=== PATIENT | male | born 1945 | race Caucasian/White ===

== ENCOUNTER 2018-07-26 11:27 | Outpatient (RCR) | payer SELFPAY | END 2018-07-27 23:59 | disposition home or self-care (01) | LOC: CR 11:27 | PROVIDERS: PCP Nurse Practitioner; Visit Provider Family Medicine | DX: Z95.5 Presence of coronary angioplasty implant and graft (principal); Z51.89 Encounter for other specified aftercare ==

== ENCOUNTER 2018-08-16 09:42 | Outpatient (CLI) | payer MEDICARE, SELFPAY ==
[2018-08-16 10:36] LABS: HCT 36.1 % (40.0-50.0); HGB 11.9 g/dL (13.5-17.5); Mean Corpuscular Hemoglobin 31.2 pg (27.0-33.0); Mean Corpuscular Volume 94.5 fL (80-95); Mean Platelet Volume 13.5 fL (8.0-11.0); Platelet Count 129 x1000/uL (130-400); RBC 3.82 m/cumm (4.50-6.00); White Blood Cell Count 6.77 k/cumm (4.4-10.8)
[2018-08-16 11:35] LABS: ALT 60 U/L (12-78); AST 30 U/L (15-37); Albumin 3.6 g/dL (3.4-5.0); Alkaline Phosphatase 90 U/L (46-116); Anion Gap 8.4 mmol/L (3-11); BUN 33 mg/dL (7-18); Bilirubin, Total 0.9 mg/dL (0.2-1.0); CO2 28.6 mmol/L (21.0-32.0); CREATININE 1.69 mg/dL (0.70-1.30); Calcium 9.1 mg/dL (8.5-10.1); Chloride 105 mmol/L (98-107); Estimated GFR 39.76 (mL/min/1.73m2); Glucose 176 mg/dL (70-100); Potassium 4.2 mmol/L (3.5-5.1); Sodium 142 mmol/L (136-145); Total Protein 6.9 g/dL (6.4-8.2)
[2018-08-16 11:42] LABS: COMMENT (LAB VIEW ONLY) 123.89 mg/dL; Microalb ug/mg Crea 20.7 ug/mg Cr
[2018-08-16 12:59] LABS: Hemoglobin A1C 8.3 % (4.5-6.2)
== END 2018-08-16 10:02 ==
PROVIDERS: PCP Nurse Practitioner; Visit Provider Nurse Practitioner
DX: E11.22 Type 2 diabetes mellitus with diabetic chronic kidney disease (principal); N18.3 Chronic kidney disease, stage 3 (moderate); E78.5 Hyperlipidemia, unspecified; I10 Essential (primary) hypertension
CPT/HCPCS: 36415; 80053; 85027; 82043; 82570; 83036

== ENCOUNTER 2018-08-23 10:00 | Outpatient (RCR) | payer SELFPAY | END 2018-08-26 23:59 | disposition home or self-care (01) | LOC: CR 10:00 | PROVIDERS: PCP Nurse Practitioner; Visit Provider Family Medicine | DX: Z51.89 Encounter for other specified aftercare (principal) ==

== ENCOUNTER → 2018-09-06 12:49 | Outpatient (BNVA) | payer MEDICARE, SELFPAY | PROVIDERS: PCP Nurse Practitioner; Visit Provider Nurse Practitioner Gerontology | DX: R35.0 Frequency of micturition (principal); E11.40 Type 2 diabetes mellitus with diabetic neuropathy, unspecified; Z79.4 Long term (current) use of insulin; I12.9 Hypertensive chronic kidney disease with stage 1 through stage 4 chronic kidney disease, or unspecified chronic kidney disease; E11.22 Type 2 diabetes mellitus with diabetic chronic kidney disease; N18.9 Chronic kidney disease, unspecified | CPT/HCPCS: 99204; 99215 ==

== ENCOUNTER 2018-09-25 10:00 | Outpatient (RCR) | payer SELFPAY | END 2018-09-26 23:59 | disposition home or self-care (01) | LOC: CR 10:00 | PROVIDERS: PCP Nurse Practitioner; Visit Provider Family Medicine | DX: Z51.89 Encounter for other specified aftercare (principal) ==

== ENCOUNTER → 2018-09-26 09:09 | Outpatient (BNVA) | payer MEDICARE, SELFPAY | PROVIDERS: PCP Nurse Practitioner; Visit Provider Psychiatry & Neurology Neurology | DX: M79.671 Pain in right foot (principal); M79.672 Pain in left foot; E11.40 Type 2 diabetes mellitus with diabetic neuropathy, unspecified; E11.22 Type 2 diabetes mellitus with diabetic chronic kidney disease; N18.3 Chronic kidney disease, stage 3 (moderate); I12.9 Hypertensive chronic kidney disease with stage 1 through stage 4 chronic kidney disease, or unspecified chronic kidney disease; Z79.4 Long term (current) use of insulin | CPT/HCPCS: 99205; 99215 ==

== ENCOUNTER 2018-09-27 05:24 | Outpatient (RCR) | payer SELFPAY | END 2018-10-26 23:59 | disposition home or self-care (01) | LOC: CR 05:24 | PROVIDERS: PCP Nurse Practitioner; Visit Provider Family Medicine | DX: Z51.89 Encounter for other specified aftercare (principal) ==

== ENCOUNTER 2018-09-28 11:40 | Outpatient (CLI) | payer MEDICARE, SELFPAY ==
[2018-09-28 13:38] LABS: Anion Gap 10.5 mmol/L (3-11); BUN 36 mg/dL (7-18); CO2 28.5 mmol/L (21.0-32.0); CREATININE 1.87 mg/dL (0.70-1.30); Calcium 8.9 mg/dL (8.5-10.1); Chloride 104 mmol/L (98-107); Estimated GFR 35.38 (mL/min/1.73m2); Glucose 185 mg/dL (70-100); Potassium 4.8 mmol/L (3.5-5.1); Sodium 143 mmol/L (136-145)
[2018-09-28 14:01] LABS: TSH (W/Ref FT4) 1.45 uIU/mL (0.358-3.74); Vitamin B12 299 pg/mL (193-986)
[2018-10-01 12:18] LABS: Total Protein 6.6 g/dl (6.3-8.2)
== END 2018-09-28 12:00 ==
PROVIDERS: PCP Nurse Practitioner; Visit Provider Psychiatry & Neurology Neurology
DX: E11.40 Type 2 diabetes mellitus with diabetic neuropathy, unspecified (principal); E11.21 Type 2 diabetes mellitus with diabetic nephropathy
CPT/HCPCS: 80048; 82607; 84165; 84443

== ENCOUNTER 2018-11-07 17:12 | Outpatient (CLI) | payer MEDICARE, SELFPAY ==
--- NOTE | 2018-11-07 15:42 | DI.RAD_ITS ---
SYMPTOM/DIAGNOSIS: RIGHT FOOT PAIN X 2 MONTHS, M79.671, FOOT PAIN RT RIGHT FOOT: Three views. No priors. There is a nondisplaced fracture involving the proximal right 5th metatarsal. The fractures does not appear to extend in to the joint space. No other fracture or dislocation is seen. Degenerative changes are seen in the foot. Vascular calcifications are present. There is mild soft tissue swelling laterally IMPRESSION: Nondisplaced fracture involving the right 5th metatarsal.
== END 2018-11-07 17:32 ==
PROVIDERS: PCP Nurse Practitioner; Visit Provider Nurse Practitioner
DX: M79.671 Pain in right foot (principal); S92.354A Nondisplaced fracture of fifth metatarsal bone, right foot, initial encounter for closed fracture
CPT/HCPCS: 73630

== ENCOUNTER 2018-11-15 10:00 | Outpatient (RCR) | payer SELFPAY | END 2018-11-26 23:59 | disposition home or self-care (01) | LOC: CR 10:00 | PROVIDERS: PCP Nurse Practitioner; Visit Provider Family Medicine | DX: Z51.89 Encounter for other specified aftercare (principal) ==

== ENCOUNTER 2018-12-27 10:00 | Outpatient (RCR) | payer SELFPAY | END 2018-12-27 23:59 | disposition home or self-care (01) | LOC: CR 10:00 | PROVIDERS: PCP Nurse Practitioner; Visit Provider Family Medicine | DX: Z51.89 Encounter for other specified aftercare (principal) ==

== ENCOUNTER → 2019-01-16 08:40 | Outpatient (BNVA) | payer MEDICARE, SELFPAY | PROVIDERS: PCP Nurse Practitioner; Visit Provider Nurse Practitioner Adult Health | DX: E11.42 Type 2 diabetes mellitus with diabetic polyneuropathy (principal); Z79.4 Long term (current) use of insulin; E11.22 Type 2 diabetes mellitus with diabetic chronic kidney disease; N18.3 Chronic kidney disease, stage 3 (moderate); I12.9 Hypertensive chronic kidney disease with stage 1 through stage 4 chronic kidney disease, or unspecified chronic kidney disease | CPT/HCPCS: 99213 ==

== ENCOUNTER 2019-01-24 12:52 | Outpatient (RCR) | payer SELFPAY | END 2019-01-24 23:59 | disposition home or self-care (01) | LOC: CR 12:52 | PROVIDERS: PCP Nurse Practitioner; Visit Provider Family Medicine | DX: Z51.89 Encounter for other specified aftercare (principal) ==

== ENCOUNTER 2019-02-21 10:00 | Outpatient (RCR) | payer SELFPAY | END 2019-02-24 23:59 | disposition home or self-care (01) | LOC: CR 10:00 | PROVIDERS: PCP Nurse Practitioner; Visit Provider Family Medicine | DX: Z51.89 Encounter for other specified aftercare (principal) ==

== ENCOUNTER 2019-03-21 10:00 | Outpatient (RCR) | payer SELFPAY | END 2019-03-26 23:59 | disposition home or self-care (01) | LOC: CR 10:00 | PROVIDERS: PCP Nurse Practitioner; Visit Provider Family Medicine | DX: Z51.89 Encounter for other specified aftercare (principal) ==

== ENCOUNTER 2019-03-27 05:32 | Outpatient (RCR) | payer SELFPAY | END 2019-04-26 23:59 | disposition home or self-care (01) | LOC: CR 05:32 | PROVIDERS: PCP Nurse Practitioner; Visit Provider Family Medicine | DX: Z51.89 Encounter for other specified aftercare (principal) ==

== ENCOUNTER 2019-04-28 04:24 | Outpatient (RCR) | payer SELFPAY | END 2019-05-26 23:59 | disposition home or self-care (01) | LOC: CR 04:24 | PROVIDERS: PCP Nurse Practitioner; Visit Provider Family Medicine | DX: Z51.89 Encounter for other specified aftercare (principal) ==

== ENCOUNTER 2019-06-18 14:03 | Outpatient (RCR) | payer SELFPAY | END 2019-06-26 23:59 | disposition home or self-care (01) | LOC: CR 14:03 | PROVIDERS: PCP Nurse Practitioner; Visit Provider Family Medicine | DX: Z51.89 Encounter for other specified aftercare (principal) ==

== ENCOUNTER → 2019-07-17 09:05 | Outpatient (BNVA) | payer MEDICARE, SELFPAY | PROVIDERS: PCP Nurse Practitioner; Visit Provider Nurse Practitioner Adult Health | DX: E11.42 Type 2 diabetes mellitus with diabetic polyneuropathy (principal); R25.1 Tremor, unspecified; R41.3 Other amnesia; I12.9 Hypertensive chronic kidney disease with stage 1 through stage 4 chronic kidney disease, or unspecified chronic kidney disease; E11.22 Type 2 diabetes mellitus with diabetic chronic kidney disease; N18.3 Chronic kidney disease, stage 3 (moderate); Z79.4 Long term (current) use of insulin | CPT/HCPCS: 99213 ==

== ENCOUNTER 2019-07-25 09:00 | Outpatient (RCR) | payer SELFPAY | END 2019-07-27 23:59 | disposition home or self-care (01) | LOC: CR 09:00 | PROVIDERS: PCP Nurse Practitioner; Visit Provider Family Medicine | DX: Z51.89 Encounter for other specified aftercare (principal) ==

== ENCOUNTER 2019-07-26 02:40 | Outpatient (CLI) | payer MEDICARE, SELFPAY ==
[2019-07-26 07:33] LABS: HCT 38.3 % (40.0-50.0); HGB 12.4 g/dL (13.5-17.5); Mean Corp. HGB Concentration 32.4 g/dL (32.0-36.0); Mean Corpuscular Hemoglobin 31.1 pg (27.0-33.0); Mean Platelet Volume 13.5 fL (8.0-11.0); Platelet Count 125 x1000/uL (130-400); RBC 3.99 m/cumm (4.50-6.00); RBC Distribution Width 14.3 % (11.8-14.1); White Blood Cell Count 8.95 k/cumm (4.4-10.8)
[2019-07-26 08:16] LABS: Microalb ug/mg Crea 12.9 ug/mg Cr
[2019-07-26 08:38] LABS: ALT 44 U/L (16-63); AST 24 U/L (15-37); Albumin 3.8 g/dL (3.4-5.0); Alkaline Phosphatase 92 U/L (46-116); Anion Gap 9.7 mmol/L (3-11); BUN 44 mg/dL (7-18); Bilirubin, Total 0.9 mg/dL (0.2-1.0); CO2 27.3 mmol/L (21.0-32.0); CREATININE 1.87 mg/dL (0.70-1.30); Calculated LDL 48 mg/dL; Chloride 108 mmol/L (98-107); Cholesterol 110 mg/dL (50-200); Estimated GFR 35.28 (mL/min/1.73m2); Glucose 88 mg/dL (70-100); HDL Cholesterol 35 mg/dL (40-60); Potassium 4.2 mmol/L (3.5-5.1); Sodium 145 mmol/L (136-145); Total Protein 7.3 g/dL (6.4-8.2); Triglyceride 135 mg/dL (30-150); Vitamin B12 1487 pg/mL (193-986)
== END 2019-07-26 03:00 ==
PROVIDERS: PCP Nurse Practitioner; Visit Provider Nurse Practitioner Adult Health
DX: E11.21 Type 2 diabetes mellitus with diabetic nephropathy (principal); E78.5 Hyperlipidemia, unspecified; I10 Essential (primary) hypertension; E53.8 Deficiency of other specified B group vitamins
CPT/HCPCS: 36415; 80053; 80061; 85027; 82043; 82570; 82607

== ENCOUNTER 2019-08-20 13:23 | Outpatient (RCR) | payer SELFPAY | END 2019-08-26 23:59 | disposition home or self-care (01) | LOC: CR 13:23 | PROVIDERS: PCP Nurse Practitioner; Visit Provider Family Medicine | DX: Z51.89 Encounter for other specified aftercare (principal) ==

== ENCOUNTER → 2019-09-04 08:24 | Outpatient (BNVA) | payer MEDICARE, SELFPAY | PROVIDERS: PCP Nurse Practitioner; Referring Provider Nurse Practitioner; Visit Provider Nurse Practitioner Adult Health | DX: M79.671 Pain in right foot (principal); E11.42 Type 2 diabetes mellitus with diabetic polyneuropathy; Z79.4 Long term (current) use of insulin; M79.672 Pain in left foot | CPT/HCPCS: 99213 ==

== ENCOUNTER 2019-09-26 12:00 | Outpatient (RCR) | payer SELFPAY | END 2019-09-26 23:59 | disposition home or self-care (01) | LOC: CR 12:00 | PROVIDERS: PCP Nurse Practitioner; Visit Provider Family Medicine | DX: Z51.89 Encounter for other specified aftercare (principal) ==

== ENCOUNTER 2019-10-17 11:23 | Outpatient (RCR) | payer SELFPAY | END 2019-10-26 23:59 | disposition home or self-care (01) | LOC: CR 11:23 | PROVIDERS: PCP Nurse Practitioner; Visit Provider Family Medicine | DX: Z51.89 Encounter for other specified aftercare (principal) ==

== ENCOUNTER 2019-11-12 12:21 | Outpatient (RCR) | payer SELFPAY | END 2019-11-26 23:59 | disposition home or self-care (01) | LOC: CR 12:21 | PROVIDERS: PCP Nurse Practitioner; Visit Provider Family Medicine | DX: Z51.89 Encounter for other specified aftercare (principal) ==

== ENCOUNTER 2019-12-26 09:00 | Outpatient (RCR) | payer SELFPAY | END 2019-12-27 23:59 | disposition home or self-care (01) | LOC: CR 09:00 | PROVIDERS: PCP Nurse Practitioner; Visit Provider Family Medicine | DX: Z51.89 Encounter for other specified aftercare (principal) ==

== ENCOUNTER 2020-01-02 09:00 | Outpatient (RCR) | payer SELFPAY | END 2020-01-25 23:59 | disposition home or self-care (01) | LOC: CR 09:00 | PROVIDERS: PCP Nurse Practitioner; Visit Provider Family Medicine | DX: Z51.89 Encounter for other specified aftercare (principal) ==

== ENCOUNTER 2020-01-26 03:37 | Outpatient (RCR) | payer SELFPAY | END 2020-02-25 23:59 | disposition home or self-care (01) | LOC: CR 03:37 | PROVIDERS: PCP Nurse Practitioner; Visit Provider Family Medicine | DX: Z51.89 Encounter for other specified aftercare (principal) ==

== ENCOUNTER → 2020-04-22 09:46 | Outpatient (BNVA) | payer MEDICARE, SELFPAY | PROVIDERS: PCP Nurse Practitioner; Referring Provider Nurse Practitioner; Visit Provider Nurse Practitioner Adult Health | DX: E11.42 Type 2 diabetes mellitus with diabetic polyneuropathy (principal); E11.22 Type 2 diabetes mellitus with diabetic chronic kidney disease; I12.9 Hypertensive chronic kidney disease with stage 1 through stage 4 chronic kidney disease, or unspecified chronic kidney disease; Z79.4 Long term (current) use of insulin | CPT/HCPCS: 99213 ==

== ENCOUNTER 2020-05-21 02:51 | Outpatient (CLI) | payer MEDICARE, SELFPAY ==
[2020-05-21 09:03] LABS: HCT 38.7 % (40.0-50.0); HGB 12.5 g/dL (13.5-17.5); Mean Corp. HGB Concentration 32.3 g/dL (32.0-36.0); Mean Corpuscular Hemoglobin 30.5 pg (27.0-33.0); Mean Corpuscular Volume 94.4 fL (80-95); RBC Distribution Width 14.1 % (11.8-14.1); White Blood Cell Count 7.58 k/cumm (4.4-10.8)
[2020-05-21 09:09] LABS: Platelet Count 125 x1000/uL (130-400)
[2020-05-21 09:56] LABS: ALT 41 U/L (16-63); AST 24 U/L (15-37); Albumin 3.7 g/dL (3.4-5.0); Alkaline Phosphatase 95 U/L (46-116); Anion Gap 9.9 mmol/L (3-11); BUN 33 mg/dL (7-18); Bilirubin, Total 0.9 mg/dL (0.2-1.0); CO2 26.1 mmol/L (21.0-32.0); CREATININE 1.81 mg/dL (0.70-1.30); Calculated LDL 47 mg/dL (<100); Chloride 108 mmol/L (98-107); Cholesterol 123 mg/dL (<200); Estimated GFR 36.54 (mL/min/1.73m2); Glucose 84 mg/dL (74-106); HDL Cholesterol 34 mg/dL (40-60); Potassium 4.2 mmol/L (3.5-5.1); Sodium 144 mmol/L (136-145); Total Protein 6.8 g/dL (6.4-8.2); Triglyceride 210 mg/dL (<150)
== END 2020-05-21 03:11 ==
PROVIDERS: PCP Nurse Practitioner; Visit Provider Nurse Practitioner
DX: E11.21 Type 2 diabetes mellitus with diabetic nephropathy (principal); E78.5 Hyperlipidemia, unspecified; I25.10 Atherosclerotic heart disease of native coronary artery without angina pectoris; N18.3 Chronic kidney disease, stage 3 (moderate)
CPT/HCPCS: 36415; 80053; 80061; 85027

== ENCOUNTER → 2020-06-24 09:21 | Outpatient (BNVA) | payer MEDICARE, SELFPAY | PROVIDERS: PCP Nurse Practitioner; Referring Provider Nurse Practitioner; Visit Provider Nurse Practitioner Adult Health | DX: E11.42 Type 2 diabetes mellitus with diabetic polyneuropathy (principal); E11.22 Type 2 diabetes mellitus with diabetic chronic kidney disease; N18.3 Chronic kidney disease, stage 3 (moderate); Z79.4 Long term (current) use of insulin | CPT/HCPCS: 99213 ==

== ENCOUNTER 2020-08-24 11:22 | Outpatient (REF) | payer MEDICARE, SELFPAY ==
[2020-08-24 19:44] LABS: Anion Gap 10.5 mmol/L (3-11); BUN 46 mg/dL (7-18); CO2 24.5 mmol/L (21.0-32.0); Calcium 9.3 mg/dL (8.5-10.1); Chloride 106 mmol/L (98-107); Estimated GFR 36.77 (mL/min/1.73m2); Glucose 136 mg/dL (74-106); Potassium 4.5 mmol/L (3.5-5.1); Sodium 141 mmol/L (136-145)
== END 2020-08-24 11:42 ==
LOC: LBN 11:22
PROVIDERS: PCP Nurse Practitioner; Visit Provider Family Medicine
DX: R79.89 Other specified abnormal findings of blood chemistry (principal)
CPT/HCPCS: 80048

== ENCOUNTER → 2020-11-02 08:26 | Outpatient (BNVA) | payer MEDICARE, SELFPAY | PROVIDERS: PCP Nurse Practitioner; Referring Provider Nurse Practitioner; Visit Provider Nurse Practitioner Adult Health | DX: E11.42 Type 2 diabetes mellitus with diabetic polyneuropathy (principal); Z79.4 Long term (current) use of insulin | CPT/HCPCS: 99212; 99441 ==

== ENCOUNTER 2021-02-26 15:10 | Outpatient (CLI) | payer MEDICARE, SELFPAY ==
--- NOTE | 2021-02-26 15:00 | RT.EKG_ITS ---
APPROVED REPORT Exam: Resting ECG Patient Location: O HR:52 bpm ECG Measurements Heart Rate 52 AXIS [place] 177 P 42 QRSd 94 QRS -16 QT 467 T 40 QTc 434 Conclusion Sinus bradycardia...rate< 60
== END 2021-02-26 15:11 | disposition home or self-care (01) ==
PROVIDERS: PCP Nurse Practitioner; Visit Provider Family Medicine
DX: I95.9 Hypotension, unspecified (principal); I25.10 Atherosclerotic heart disease of native coronary artery without angina pectoris; R42 Dizziness and giddiness; R00.1 Bradycardia, unspecified
CPT/HCPCS: 93010

== ENCOUNTER 2021-03-09 05:58 | Outpatient (CLI) | payer MEDICARE, SELFPAY ==
--- NOTE | 2021-03-09 11:00 | NS.NUTBLAN_ITS ---
ASSESSMENT: 75y/o M presents with referral for DM /nutrition counseling r/t hyperglycemia. Patient prefers to be called Alhaji. He states that his main concern at this encounter is not doing great with my sugar. Currently on Lantus 63U HS and glimiperide 4mg 1X/day. He keeps very meticulous records and uses finger stick to check BG levels 2x/day. Alhaji brought records of 5 day average which was in the 150's. there were some high 200's mixed in. He takes FBG and HS glucose readings. Noted: hx CABG and CKD3. He stated he went to cardiac rehab 3x/week but stopped because of pandemic. He was not very familiar with CHO counting but was able to explain food choices r/t some of his high numbers. Noted: documentation reveals hx DM neuropathy and DM foot ulcer. No recent A1c available. ( 7.7 on 11/04/20). INTERVENTION: Re-eduacted Alhaji on CHO counting. Demonstrated and recommended carbs and cals phone kathryn top help w/ CHO counting.Provided literature for [facility] DM online support group. Reviewed his breakfast and luch choices and counted the carbs with him. Recommended <60g/CHO per meal period. Recommended increase vegetable consumption and pair CHO's with Pro to mitigate BG spikes. Explained the role of fiber in BG control. Provided literature on 15g CHO portion sizes for common foods. Reviewed simple and complex CHO's. MONITOR/EVAL: Alhaji will arrange for f/u appointment w/ this RD in 30 days to review BG levels r/t food choices and diet adjustments. He may be a good candidate for SGLT-2 and DC glimiperide. We agreed that he would try food approach first and if results are not WNL he would look at DM med adjustment with PCP. Time Spent Face to Face: 1 Hour/4Units
== END 2021-03-09 05:59 | disposition home or self-care (01) ==
LOC: DS 03-16 12:10
PROVIDERS: PCP Nurse Practitioner; Visit Provider Dietitian, Registered
DX: E11.65 Type 2 diabetes mellitus with hyperglycemia (principal); Z71.3 Dietary counseling and surveillance
CPT/HCPCS: 97802

== ENCOUNTER 2021-05-14 03:10 | Outpatient (CLI) | payer MEDICARE, SELFPAY ==
[2021-05-14 09:30] LABS: HCT 37.4 % (40.0-50.0); HGB 12.3 g/dL (13.5-17.5); MCH 31.3 pg (27.0-33.0); MCHC 32.9 % (32.0-36.0); MCV 95.2 fL (80-95); Platelet Count 114 10^3/uL (130-400); RBC 3.93 10^6/uL (4.36-5.78); RDW 14.2 % (11.8-14.1); RDW-SD 49.7 fL; WBC 8.06 10^3/uL (4.4-10.8)
[2021-05-14 10:20] LABS: ALT 52 U/L (16-63); AST 23 U/L (15-37); Albumin 3.8 g/dL (3.4-5.0); Alkaline Phosphatase 88 U/L (46-116); Anion Gap 11.5 mmol/L (3-11); BUN 55 mg/dL (7-18); Bilirubin, Total 0.7 mg/dL (0.2-1.0); CO2 25.5 mmol/L (21.0-32.0); CREATININE 2.5 mg/dL (0.70-1.30); Calculated LDL 54 mg/dL (<100); Chloride 108 mmol/L (98-107); Cholesterol 118 mg/dL (<200); Glucose 131 mg/dL (74-106); HDL Cholesterol 33 mg/dL (40-60); Sodium 145 mmol/L (136-145); Total Protein 6.9 g/dL (6.4-8.2); Triglyceride 155 mg/dL (<150)
== END 2021-05-14 03:11 | disposition home or self-care (01) ==
LOC: LBO 03:10
PROVIDERS: PCP Nurse Practitioner; Visit Provider Nurse Practitioner
DX: I10 Essential (primary) hypertension (principal); E78.5 Hyperlipidemia, unspecified; E11.22 Type 2 diabetes mellitus with diabetic chronic kidney disease
CPT/HCPCS: 36415; 80053; 80061; 85027

== ENCOUNTER 2021-05-25 13:00 | Outpatient (RCR) | payer SELFPAY ==
[2021-04-27 13:00] VITALS: BP 167/71; PULSE 59
[2021-04-29 13:08] VITALS: PULSE 65; O2SAT 93
[2021-05-06 13:02] VITALS: BP 141/64; PULSE 63
[2021-05-11 13:06] VITALS: BP 171/68; PULSE 65
[2021-05-13 13:13] VITALS: BP 155/68; PULSE 66
[2021-05-18 13:05] VITALS: BP 144/66; PULSE 61
[2021-05-20 13:12] VITALS: BP 123/63; PULSE 56
[2021-05-25 13:09] VITALS: BP 145/62; PULSE 62
== END 2021-05-26 23:59 | disposition home or self-care (01) ==
LOC: CR 13:00
PROVIDERS: PCP Nurse Practitioner; Visit Provider Family Medicine
DX: Z51.89 Encounter for other specified aftercare (principal)

== ENCOUNTER → 2021-05-26 09:49 | Outpatient (BNVA) | payer MEDICARE, SELFPAY | PROVIDERS: PCP Nurse Practitioner; Referring Provider Nurse Practitioner; Visit Provider Nurse Practitioner Adult Health | DX: E11.42 Type 2 diabetes mellitus with diabetic polyneuropathy (principal); R41.89 Other symptoms and signs involving cognitive functions and awareness; G47.9 Sleep disorder, unspecified | CPT/HCPCS: 99213; 99215 ==

== ENCOUNTER 2021-06-03 10:18 | Outpatient (REF) | payer MEDICARE, SELFPAY ==
[2021-06-03 18:55] LABS: Anion Gap 10.5 mmol/L (3-11); BUN 49 mg/dL (7-18); CO2 26.5 mmol/L (21.0-32.0); Calcium 8.8 mg/dL (8.5-10.1); Chloride 107 mmol/L (98-107); Estimated GFR 32.48 (mL/min/1.73m2); Glucose 121 mg/dL (74-106); Potassium 4.9 mmol/L (3.5-5.1); Sodium 144 mmol/L (136-145)
== END 2021-06-03 10:19 | disposition home or self-care (01) ==
LOC: LBN 10:18
PROVIDERS: PCP Nurse Practitioner; Visit Provider Nurse Practitioner
DX: R79.89 Other specified abnormal findings of blood chemistry (principal)
CPT/HCPCS: 80048

== ENCOUNTER 2021-06-22 13:00 | Outpatient (RCR) | payer SELFPAY ==
[2021-05-27 00:12] VITALS: BP 145/62; PULSE 62
[2021-05-27 12:56] VITALS: BP 119/50; PULSE 56; O2SAT 95
[2021-06-01 12:59] VITALS: BP 137/67; PULSE 58; O2SAT 94
[2021-06-03 13:02] VITALS: BP 149/63; PULSE 50
[2021-06-08 13:19] VITALS: BP 164/63; PULSE 56
[2021-06-10 13:15] VITALS: BP 140/63; PULSE 64
[2021-06-15 13:08] VITALS: BP 140/55; PULSE 63
[2021-06-17 13:13] VITALS: BP 130/58; PULSE 55
[2021-06-22 13:00] VITALS: BP 138/58; PULSE 58
== END 2021-06-26 23:59 | disposition home or self-care (01) ==
LOC: CR 13:00
PROVIDERS: PCP Nurse Practitioner; Visit Provider Family Medicine
DX: Z51.89 Encounter for other specified aftercare (principal)

== ENCOUNTER 2021-06-28 02:21 | Outpatient (CLI) | payer MEDICARE, SELFPAY ==
[2021-06-28 09:28] LABS: Anion Gap 6.5 mmol/L (3-11); BUN 48 mg/dL (7-18); CO2 29.5 mmol/L (21.0-32.0); CREATININE 1.9 mg/dL (0.70-1.30); Calcium 9.2 mg/dL (8.5-10.1); Chloride 108 mmol/L (98-107); Estimated GFR 34.46 (mL/min/1.73m2); Glucose 111 mg/dL (74-106); Potassium 4.4 mmol/L (3.5-5.1); Sodium 144 mmol/L (136-145)
== END 2021-06-28 02:22 | disposition home or self-care (01) ==
LOC: LBO 02:23
PROVIDERS: PCP Nurse Practitioner; Visit Provider Nurse Practitioner
DX: R79.89 Other specified abnormal findings of blood chemistry (principal); I10 Essential (primary) hypertension
CPT/HCPCS: 36415; 80048

== ENCOUNTER 2021-07-27 13:00 | Outpatient (RCR) | payer SELFPAY ==
[2021-06-27 00:20] VITALS: BP 138/58; PULSE 58
[2021-06-29 13:06] VITALS: BP 147/68; PULSE 58
[2021-07-13 13:53] VITALS: BP 145/75; PULSE 68
[2021-07-15 13:11] VITALS: BP 122/61; PULSE 59
[2021-07-20 13:14] VITALS: BP 137/64; PULSE 53
[2021-07-27 13:58] VITALS: BP 150/68; PULSE 57
== END 2021-07-27 23:59 | disposition home or self-care (01) ==
LOC: CR 13:00
PROVIDERS: PCP Nurse Practitioner; Visit Provider Family Medicine
DX: Z51.89 Encounter for other specified aftercare (principal); Z95.5 Presence of coronary angioplasty implant and graft

== ENCOUNTER 2021-08-24 13:00 | Outpatient (RCR) | payer SELFPAY ==
[2021-07-28 00:09] VITALS: BP 150/68; PULSE 57
[2021-07-29 13:16] VITALS: BP 148/62; PULSE 63
[2021-08-03 13:20] VITALS: BP 137/52; PULSE 60
[2021-08-05 13:07] VITALS: BP 124/71; PULSE 58
[2021-08-10 13:12] VITALS: BP 110/50; PULSE 53
[2021-08-17 13:05] VITALS: BP 134/57; PULSE 58
[2021-08-19 13:55] VITALS: BP 134/70; PULSE 65
[2021-08-24 13:31] VITALS: BP 144/58; PULSE 54
== END 2021-08-26 23:59 | disposition home or self-care (01) ==
LOC: CR 13:00
PROVIDERS: PCP Nurse Practitioner; Visit Provider Family Medicine
DX: Z51.89 Encounter for other specified aftercare (principal)

== ENCOUNTER 2021-09-23 13:00 | Outpatient (RCR) | payer SELFPAY ==
[2021-08-27 00:21] VITALS: BP 144/58; PULSE 54
[2021-09-09 14:08] VITALS: BP 145/57; PULSE 60
[2021-09-21 14:31] VITALS: BP 160/72; PULSE 82
[2021-09-23 15:07] VITALS: BP 132/60; PULSE 54
== END 2021-09-26 23:59 | disposition home or self-care (01) ==
LOC: CR 13:00
PROVIDERS: PCP Nurse Practitioner; Visit Provider Family Medicine
DX: Z51.89 Encounter for other specified aftercare (principal); R69 Illness, unspecified

== ENCOUNTER 2021-10-26 13:00 | Outpatient (RCR) | payer SELFPAY ==
[2021-09-27 00:10] VITALS: BP 132/60; PULSE 54
[2021-09-28 13:08] VITALS: BP 126/51; PULSE 58
[2021-09-30 12:57] VITALS: BP 132/52; PULSE 58
[2021-10-05 13:10] VITALS: BP 128/57; PULSE 55
[2021-10-14 13:22] VITALS: BP 158/72; PULSE 60
[2021-10-26 13:23] VITALS: BP 160/59; PULSE 58
== END 2021-10-26 23:59 | disposition home or self-care (01) ==
LOC: CR 13:00
PROVIDERS: PCP Nurse Practitioner; Visit Provider Family Medicine
DX: Z51.89 Encounter for other specified aftercare (principal); R69 Illness, unspecified

== ENCOUNTER 2021-11-10 01:40 | Outpatient (CLI) | payer MEDICARE, SELFPAY ==
[2021-11-10 22:41] LABS: PSA, Screening 1.8 ng/mL (0.0-6.5)
== END 2021-11-10 01:41 | disposition home or self-care (01) ==
LOC: LBO 01:40
PROVIDERS: PCP Nurse Practitioner; Visit Provider Nurse Practitioner
DX: R35.0 Frequency of micturition (principal); Z12.5 Encounter for screening for malignant neoplasm of prostate
CPT/HCPCS: 36415; 84153

== ENCOUNTER 2021-11-25 13:00 | Outpatient (RCR) | payer SELFPAY ==
[2021-10-27 00:16] VITALS: BP 160/59; PULSE 58
[2021-10-28 13:18] VITALS: BP 162/76; PULSE 78
[2021-11-04 13:09] VITALS: BP 157/63; PULSE 77
[2021-11-09 13:08] VITALS: BP 133/71; PULSE 62
[2021-11-11 13:06] VITALS: BP 112/56; PULSE 53
[2021-11-18 13:08] VITALS: BP 156/66; PULSE 84
[2021-11-23 13:17] VITALS: BP 150/59; PULSE 78
[2021-11-25 13:04] VITALS: BP 139/64; PULSE 61
== END 2021-11-26 23:59 | disposition home or self-care (01) ==
LOC: CR 13:00
PROVIDERS: PCP Nurse Practitioner; Visit Provider Family Medicine
DX: Z51.89 Encounter for other specified aftercare (principal); R69 Illness, unspecified

== ENCOUNTER 2021-11-29 15:09 | Outpatient (RCR) | payer SELFPAY ==
[2021-11-27 00:07] VITALS: BP 139/64; PULSE 61
[2021-11-30 13:13] VITALS: BP 156/57; PULSE 75
== END 2021-12-27 23:59 | disposition home or self-care (01) ==
LOC: CR 15:09
PROVIDERS: PCP Nurse Practitioner; Visit Provider Family Medicine
DX: R69 Illness, unspecified (principal)

== ENCOUNTER → 2021-12-09 13:52 | Outpatient (BNVA) | payer MEDICARE, SELFPAY | PROVIDERS: PCP Nurse Practitioner; Referring Provider Nurse Practitioner; Visit Provider Nurse Practitioner Adult Health | DX: E11.42 Type 2 diabetes mellitus with diabetic polyneuropathy (principal); R41.89 Other symptoms and signs involving cognitive functions and awareness; G25.0 Essential tremor | CPT/HCPCS: 99213; 99214 ==

== ENCOUNTER → 2022-01-05 10:42 | Outpatient (BNVA) | payer MEDICARE, SELFPAY | PROVIDERS: PCP Nurse Practitioner; Referring Provider Nurse Practitioner; Visit Provider Nurse Practitioner Gerontology | DX: N40.1 Benign prostatic hyperplasia with lower urinary tract symptoms (principal); R35.0 Frequency of micturition | CPT/HCPCS: 99215 ==

== ENCOUNTER 2022-02-22 10:00 | Outpatient (RCR) | payer SELFPAY ==
[2022-02-15 10:00] VITALS: BP 184/72; PULSE 85; O2SAT 97
[2022-02-15 10:05] VITALS: BP 165/69
[2022-02-17 10:18] VITALS: BP 137/58; PULSE 63
[2022-02-22 10:02] VITALS: BP 158/62; PULSE 55
[2022-02-24 10:00] VITALS: BP 142/59; PULSE 57
== END 2022-02-24 23:59 | disposition home or self-care (01) ==
LOC: CR 10:00
PROVIDERS: PCP Nurse Practitioner; Visit Provider Family Medicine
DX: R69 Illness, unspecified (principal)

== ENCOUNTER 2022-03-24 10:00 | Outpatient (RCR) | payer SELFPAY ==
[2022-02-25 00:17] VITALS: BP 142/59; PULSE 57
[2022-03-03 10:01] VITALS: BP 132/65; PULSE 57
[2022-03-08 11:12] VITALS: BP 118/47; PULSE 57
[2022-03-10 10:28] VITALS: BP 142/67; PULSE 58
[2022-03-17 10:16] VITALS: BP 136/56; PULSE 52; O2SAT 96
[2022-03-22 10:06] VITALS: BP 145/58; PULSE 57
[2022-03-24 10:22] VITALS: BP 145/57; PULSE 59
== END 2022-03-26 23:59 | disposition home or self-care (01) ==
LOC: CR 10:00
PROVIDERS: PCP Nurse Practitioner; Visit Provider Internal Medicine Cardiovascular Disease
DX: R69 Illness, unspecified (principal)

== ENCOUNTER → 2022-04-05 14:52 | Outpatient (BNVA) | payer MEDICARE, SELFPAY | PROVIDERS: PCP Nurse Practitioner; Referring Provider Nurse Practitioner; Visit Provider Nurse Practitioner Gerontology | DX: N40.1 Benign prostatic hyperplasia with lower urinary tract symptoms (principal); R35.1 Nocturia; N13.8 Other obstructive and reflux uropathy | CPT/HCPCS: 51798; 99214 ==

== ENCOUNTER 2022-04-26 09:53 | Outpatient (RCR) | payer SELFPAY ==
[2022-03-27 00:07] VITALS: BP 145/57; PULSE 59
[2022-03-29 10:07] VITALS: BP 131/53; PULSE 54
[2022-03-31 10:16] VITALS: BP 137/52; PULSE 55
[2022-04-05 10:00] VITALS: BP 145/56; PULSE 55
[2022-04-07 10:00] VITALS: BP 139/61; PULSE 59
[2022-04-19 10:23] VITALS: BP 147/67; PULSE 60
[2022-04-21 10:11] VITALS: BP 131/54; PULSE 61
[2022-04-26 09:54] VITALS: BP 141/59; PULSE 58
== END 2022-04-26 23:59 | disposition home or self-care (01) ==
LOC: CR 09:53
PROVIDERS: PCP Nurse Practitioner; Visit Provider Internal Medicine Cardiovascular Disease
DX: R69 Illness, unspecified (principal)

== ENCOUNTER 2022-04-27 04:12 | Outpatient (CLI) | payer MEDICARE, SELFPAY ==
[2022-04-27 09:04] LABS: Abs Immature Grans 0.02 10^3/uL (0.0-0.06); Absolute Basophil Count 0.05 10^3/uL (0.0-0.2); Absolute Eosinophil Count 0.36 10^3/uL (0.0-0.7); Absolute Neutrophil Count 3.75 10^3/uL (1.2-6.7); Basophils % 0.7; Eosinophils % 4.9; HCT 36.4 % (40.0-50.0); Immature Grans % 0.3; MCH 30.8 pg (27.0-33.0); MCV 93 fL (80-95); Monocytes % 9.6; Neutrophils % 51.5; RDW 13.2 % (11.8-14.1); RDW-SD 44.8 fL; WBC 7.28 10^3/uL (4.4-10.8)
[2022-04-27 09:20] LABS: Platelet Count 96 10^3/uL (130-400)
[2022-04-27 09:58] LABS: ALT 42 U/L (16-63); AST 19 U/L (15-37); Albumin 3.8 g/dL (3.4-5.0); Alkaline Phosphatase 68 U/L (46-116); Anion Gap 8.5 mmol/L (3-11); BUN 52 mg/dL (7-18); Bilirubin, Total 1.1 mg/dL (0.2-1.0); CO2 26.5 mmol/L (21.0-32.0); CREATININE 2.2 mg/dL (0.70-1.30); Calcium 8.6 mg/dL (8.5-10.1); Calculated LDL 50 mg/dL (<100); Chloride 108 mmol/L (98-107); Cholesterol 119 mg/dL (<200); Estimated GFR 29.09 (mL/min/1.73m2); Glucose 124 mg/dL (74-106); HDL Cholesterol 42 mg/dL (40-60); Potassium 4.8 mmol/L (3.5-5.1); Sodium 143 mmol/L (136-145); Total Protein 6.9 g/dL (6.4-8.2); Triglyceride 139 mg/dL (<150)
== END 2022-04-27 04:13 | disposition home or self-care (01) ==
LOC: LBO 04:13
PROVIDERS: PCP Nurse Practitioner; Visit Provider Nurse Practitioner
DX: E11.21 Type 2 diabetes mellitus with diabetic nephropathy (principal); N18.30 Chronic kidney disease, stage 3 unspecified; I25.10 Atherosclerotic heart disease of native coronary artery without angina pectoris; J45.909 Unspecified asthma, uncomplicated
CPT/HCPCS: 36415; 80053; 80061; 85025

== ENCOUNTER 2022-05-24 09:55 | Outpatient (RCR) | payer SELFPAY ==
[2022-04-27 00:04] VITALS: BP 141/59; PULSE 58
[2022-05-03 10:24] VITALS: BP 133/53; PULSE 61
[2022-05-05 10:06] VITALS: BP 147/54; PULSE 57
[2022-05-10 10:25] VITALS: BP 144/60; PULSE 60
[2022-05-12 10:11] VITALS: BP 124/54; PULSE 66
[2022-05-17 10:42] VITALS: BP 134/62; PULSE 64
[2022-05-24 09:54] VITALS: BP 147/62; PULSE 56
== END 2022-05-26 23:59 | disposition home or self-care (01) ==
LOC: CR 09:55
PROVIDERS: PCP Nurse Practitioner; Visit Provider Internal Medicine Cardiovascular Disease
DX: R69 Illness, unspecified (principal)

== ENCOUNTER 2022-06-23 10:07 | Outpatient (RCR) | payer SELFPAY ==
[2022-05-31 10:39] VITALS: BP 131/54; PULSE 67
[2022-06-02 10:55] VITALS: BP 111/40; PULSE 60
[2022-06-07 09:53] VITALS: BP 137/66; PULSE 65
[2022-06-09 10:54] VITALS: BP 137/56; PULSE 58
[2022-06-21 10:08] VITALS: BP 148/60; PULSE 53
[2022-06-23 09:55] VITALS: BP 137/74; PULSE 66
== END 2022-06-26 23:59 | disposition home or self-care (01) ==
LOC: CR 10:07
PROVIDERS: PCP Nurse Practitioner; Visit Provider Internal Medicine Cardiovascular Disease
DX: R69 Illness, unspecified (principal)

== ENCOUNTER → 2022-06-23 14:21 | Outpatient (BNVA) | payer MEDICARE, SELFPAY | PROVIDERS: PCP Nurse Practitioner; Referring Provider Nurse Practitioner; Visit Provider Nurse Practitioner Adult Health | DX: F41.9 Anxiety disorder, unspecified (principal); I10 Essential (primary) hypertension; E11.9 Type 2 diabetes mellitus without complications; G31.84 Mild cognitive impairment of uncertain or unknown etiology | CPT/HCPCS: 99214 ==

== ENCOUNTER 2022-06-27 03:46 | Outpatient (CLI) | payer MEDICARE, SELFPAY | END 2022-06-27 03:47 | disposition home or self-care (01) | PROVIDERS: PCP Nurse Practitioner; Visit Provider Nurse Practitioner | DX: M70.21 Olecranon bursitis, right elbow (principal) | CPT/HCPCS: 99213 ==

== ENCOUNTER 2022-07-26 10:07 | Outpatient (RCR) | payer SELFPAY ==
[2022-06-27 00:16] VITALS: BP 137/74; PULSE 66
[2022-06-28 10:28] VITALS: BP 154/68; PULSE 63
[2022-06-30 10:31] VITALS: BP 132/63; PULSE 55
[2022-07-05 10:07] VITALS: BP 134/53; PULSE 61
[2022-07-07 10:15] VITALS: BP 153/57; PULSE 56
[2022-07-14 10:19] VITALS: BP 125/67; PULSE 64
[2022-07-19 09:58] VITALS: BP 140/57; PULSE 55
[2022-07-26 10:07] VITALS: BP 137/66; PULSE 58
== END 2022-07-27 23:59 | disposition home or self-care (01) ==
LOC: CR 10:07
PROVIDERS: PCP Nurse Practitioner; Visit Provider Internal Medicine Cardiovascular Disease
DX: R69 Illness, unspecified (principal)

== ENCOUNTER 2022-08-23 10:15 | Outpatient (RCR) | payer SELFPAY ==
[2022-07-28 00:18] VITALS: BP 137/66; PULSE 58
[2022-07-28 10:00] VITALS: BP 153/72; PULSE 62
[2022-08-02 09:58] VITALS: BP 145/77; PULSE 59
[2022-08-09 10:15] VITALS: BP 128/53; PULSE 61
[2022-08-11 09:58] VITALS: BP 138/77; PULSE 55
[2022-08-16 09:54] VITALS: BP 143/59; PULSE 52
[2022-08-23 10:15] VITALS: BP 132/54; PULSE 60
== END 2022-08-26 23:59 | disposition home or self-care (01) ==
LOC: CR 10:15
PROVIDERS: PCP Nurse Practitioner; Visit Provider Internal Medicine Cardiovascular Disease
DX: R69 Illness, unspecified (principal)

== ENCOUNTER 2022-09-22 10:02 | Outpatient (RCR) | payer SELFPAY ==
[2022-08-27 00:22] VITALS: BP 132/54; PULSE 60
[2022-09-08 10:32] VITALS: BP 134/50; PULSE 67
[2022-09-15 10:31] VITALS: BP 130/55; PULSE 57
[2022-09-20 09:58] VITALS: BP 135/54; PULSE 56
[2022-09-22 10:03] VITALS: BP 130/55; PULSE 53
== END 2022-09-26 23:59 | disposition home or self-care (01) ==
LOC: CR 10:02
PROVIDERS: PCP Nurse Practitioner; Visit Provider Internal Medicine Cardiovascular Disease
DX: R69 Illness, unspecified (principal)

== ENCOUNTER → 2022-09-29 01:56 | Outpatient (CLI) | payer MEDICARE, SELFPAY ==
--- NOTE | 2022-09-29 | DI.US_ITS ---
Exam(s) US RENAL EXAM: US RENAL CLINICAL HISTORY: CHRONIC KIDNEY DISEASE,N18.4,HYPERKALEMIA,E87.5 TECHNIQUE: Ultrasound performed using standard protocol. COMPARISON: No exams were available for comparison FINDINGS: Renal ultrasounds performed according to the usual protocol. Kidneys are normal in size and shape. There is a 9 millimeter echogenic focus with posterior acoustic shadowing and twinkle artifact in the midpole of the right kidney, this is consistent with renal calculus, nonobstructing. On the left there is a 2.2 cm in diameter echogenic focus with posterior acoustic shadowing in the lo wer pole of the kidney consistent with nonobstructing calculus. No hydronephrosis on either side. Pre and post void urinary bladder volume measurements are 436 cc and 0 cc respectively. Ureteral jet s were nonvisualized. IMPRESSION: Bilateral nonobstructing renal calculi as described above. DATA REPOSITORY:
[2022-09-29 09:54] VITALS: BP 150/59; PULSE 50
[2022-10-06 10:00] VITALS: BP 115/49; PULSE 50; O2SAT 94
== END ==
PROVIDERS: PCP Nurse Practitioner; Visit Provider Internal Medicine Nephrology
DX: N20.0 Calculus of kidney (principal)
CPT/HCPCS: 76770

== ENCOUNTER → 2022-10-05 15:25 | Outpatient (BNVA) | payer MEDICARE, SELFPAY | PROVIDERS: PCP Nurse Practitioner; Referring Provider Nurse Practitioner; Visit Provider Nurse Practitioner Gerontology | DX: N40.1 Benign prostatic hyperplasia with lower urinary tract symptoms (principal); N13.8 Other obstructive and reflux uropathy; N20.0 Calculus of kidney | CPT/HCPCS: 99214 ==

== ENCOUNTER 2022-10-07 18:18 | Outpatient (REF) | payer MEDICARE, SELFPAY ==
[2022-10-07 14:05] LABS: Creatinine,Urine 76.81 mg/dL; POTASSIUM,URINE RANDOM 24 mmol/L; Sodium, Urine 116 mmol/L
[2022-10-07 14:07] LABS: CLEAVED CELLS 215 mmol/24h (40-220); Creatinine,24hr Ur 1.38 g/24hr (0.95-2.49); SAMPLE LIPEMIA CHECK 1850 ml; Total Volume 1850 ml
[2022-10-08 09:21] LABS: Calcium Urine 3.7 mg/dL (See Note); Calcium Urine 24 hr 68 mg/24hrs (100-300); Timed Urine Volume 1850 mL; Uric Acid Urine 19.6 mg/dL (See Note); Uric Acid Urine 24hr 363 mg/24hrs (250-750)
[2022-10-08 09:22] LABS: Magnesium 24hr Urine 83.3 mg/24hrs (12.0-192.0); Magnesium Random Urine 4.5 mg/dL (See Note); Timed Urine Volume 1850 mL
[2022-10-10 16:14] LABS: Citrate Excretion, 24hr, U 102 mg/24 h; Urine Volume 1850 mL
[2022-10-12 15:27] LABS: Oxalate, U 17.6 mg/24 h (9.7 - 40.5); Urine Volume 1850 mL
== END 2022-10-07 18:19 | disposition home or self-care (01) ==
LOC: LBN 18:18
PROVIDERS: PCP Nurse Practitioner; Visit Provider Nurse Practitioner Gerontology
DX: N20.0 Calculus of kidney (principal); N40.1 Benign prostatic hyperplasia with lower urinary tract symptoms
CPT/HCPCS: 82507; 83735; 81050; 82340; 82570; 83945; 84133; 84300; 84560

== ENCOUNTER 2022-10-25 10:04 | Outpatient (RCR) | payer SELFPAY ==
[2022-09-27 00:20] VITALS: BP 130/55; PULSE 53
[2022-09-27 11:36] VITALS: BP 115/48; PULSE 55
[2022-10-04 10:02] VITALS: BP 150/55; PULSE 52
[2022-10-11 10:08] VITALS: BP 146/59; PULSE 59
[2022-10-13 09:50] VITALS: BP 156/59; PULSE 60
[2022-10-25 10:08] VITALS: BP 132/61; PULSE 66
== END 2022-10-26 23:59 | disposition home or self-care (01) ==
LOC: CR 10:04
PROVIDERS: PCP Nurse Practitioner; Visit Provider Internal Medicine Cardiovascular Disease
DX: R69 Illness, unspecified (principal)

== ENCOUNTER → 2022-12-21 12:48 | Outpatient (BNVA) | payer MEDICARE, SELFPAY | PROVIDERS: PCP Nurse Practitioner; Referring Provider Nurse Practitioner; Visit Provider Nurse Practitioner Adult Health | DX: G31.84 Mild cognitive impairment of uncertain or unknown etiology (principal); E11.42 Type 2 diabetes mellitus with diabetic polyneuropathy | CPT/HCPCS: 99213 ==

== ENCOUNTER 2023-01-24 09:48 | Outpatient (RCR) | payer SELFPAY ==
[2022-10-27 00:09] VITALS: BP 132/61; PULSE 66
[2023-01-03 13:57] VITALS: BP 141/54; PULSE 60
[2023-01-10 10:11] VITALS: BP 144/65; PULSE 56
[2023-01-17 09:59] VITALS: BP 154/67; PULSE 63
[2023-01-19 10:03] VITALS: BP 156/60; PULSE 68
[2023-01-24 09:48] VITALS: BP 135/57; PULSE 52
== END 2023-01-24 23:59 | disposition home or self-care (01) ==
LOC: CR 09:48
PROVIDERS: PCP Nurse Practitioner; Visit Provider Internal Medicine Cardiovascular Disease
DX: R69 Illness, unspecified (principal)

== ENCOUNTER 2023-02-16 10:00 | Outpatient (RCR) | payer SELFPAY ==
[2023-01-25 00:11] VITALS: BP 135/57; PULSE 52
[2023-01-31 10:07] VITALS: BP 157/60; PULSE 88
[2023-02-02 09:55] VITALS: BP 149/64; PULSE 53
[2023-02-09 10:00] VITALS: BP 146/55; PULSE 85
[2023-02-14 10:19] VITALS: BP 118/50; PULSE 64
[2023-02-16 10:16] VITALS: BP 152/70; PULSE 63
[2023-02-28 10:07] VITALS: BP 116/52; PULSE 70
== END 2023-02-24 23:59 | disposition home or self-care (01) ==
LOC: CR 10:00
PROVIDERS: PCP Nurse Practitioner; Visit Provider Internal Medicine Cardiovascular Disease

== ENCOUNTER 2023-03-02 09:55 | Outpatient (RCR) | payer SELFPAY ==
[2023-02-25 00:07] VITALS: BP 152/70; PULSE 63
[2023-03-02 10:15] VITALS: BP 156/66; PULSE 62
== END 2023-03-26 23:59 | disposition home or self-care (01) ==
LOC: CR 09:55
PROVIDERS: PCP Nurse Practitioner; Visit Provider Internal Medicine Cardiovascular Disease
DX: R69 Illness, unspecified (principal)

== ENCOUNTER 2023-03-27 02:07 | Outpatient (CLI) | payer MEDICARE, SELFPAY ==
--- NOTE | 2023-03-27 07:15 | DI.US_ITS ---
Exam(s) US RENAL EXAM: US RENAL CLINICAL HISTORY: monitoring renal calculi,calculus of kidney,n20.0. TECHNIQUE: Toscano scale, color and spectral Doppler were used. COMPARISON: No exams were available for comparison FINDINGS: Renal size in cm: Right: 11.3. Left: 9.2. Echogenicity: Normal. Hydronephrosis: No. Cyst or mass: No. Nephrolithiasis: There are echogenic foci seen bilaterally. There is a 0.7 cm echogenic focus in the inferior right kidney. There is a 1 cm echogenic focus seen in the lower pole of the left kidney. These likely reflect renal calculi. No hydronephrosis. Other findings: None. Bladder:Normal. Ureteral jets: Right: Visualized and unremarkable. Left: Visualized and unremarkable. Prevoid vol:173 cc Postvoid vol:30 cc Prostate: 8 cc Renal color flow: Symmetric and within normal limits. IMPRESSION: Bilateral nephrolithiasis. No hydronephrosis. DATA REPOSITORY:
== END 2023-03-27 02:27 ==
PROVIDERS: PCP Nurse Practitioner; Visit Provider Nurse Practitioner Gerontology
DX: N20.0 Calculus of kidney (principal)
CPT/HCPCS: 76770

== ENCOUNTER 2023-04-18 10:00 | Outpatient (RCR) | payer SELFPAY ==
[2023-03-27 00:04] VITALS: BP 156/66; PULSE 62
[2023-04-04 10:08] VITALS: BP 138/61; PULSE 79
[2023-04-06 09:46] VITALS: BP 106/54; PULSE 43
[2023-04-11 10:07] VITALS: BP 147/62; PULSE 71
[2023-04-13 10:25] VITALS: BP 138/61; PULSE 68
[2023-04-18 10:01] VITALS: BP 144/61; PULSE 65
== END 2023-04-26 23:59 | disposition home or self-care (01) ==
LOC: CR 10:00
PROVIDERS: PCP Nurse Practitioner; Visit Provider Internal Medicine Cardiovascular Disease

== ENCOUNTER 2023-05-25 10:08 | Outpatient (RCR) | payer SELFPAY ==
[2023-04-27 00:13] VITALS: BP 144/61; PULSE 65
[2023-04-27 10:19] VITALS: BP 152/63; PULSE 64
[2023-05-02 09:29] VITALS: BP 146/59; PULSE 57
[2023-05-09 10:28] VITALS: BP 117/53; PULSE 63
[2023-05-11 09:52] VITALS: BP 139/61; PULSE 68
[2023-05-16 09:29] VITALS: BP 139/60; PULSE 73
[2023-05-18 09:58] VITALS: BP 169/70; PULSE 73
[2023-05-23 09:58] VITALS: BP 154/63; PULSE 73
[2023-05-25 10:00] VITALS: BP 143/58; PULSE 66
== END 2023-05-26 23:59 | disposition home or self-care (01) ==
LOC: CR 10:08
PROVIDERS: PCP Nurse Practitioner; Visit Provider Internal Medicine Cardiovascular Disease
DX: R69 Illness, unspecified (principal)

== ENCOUNTER → 2023-06-21 09:43 | Outpatient (BNVA) | payer MEDICARE, SELFPAY | PROVIDERS: PCP Nurse Practitioner; Referring Provider Nurse Practitioner; Visit Provider Nurse Practitioner Adult Health | DX: E11.42 Type 2 diabetes mellitus with diabetic polyneuropathy (principal); G25.0 Essential tremor; I12.9 Hypertensive chronic kidney disease with stage 1 through stage 4 chronic kidney disease, or unspecified chronic kidney disease; N18.30 Chronic kidney disease, stage 3 unspecified; E11.22 Type 2 diabetes mellitus with diabetic chronic kidney disease | CPT/HCPCS: 99213 ==

== ENCOUNTER 2023-06-22 09:58 | Outpatient (RCR) | payer SELFPAY ==
[2023-05-27 00:06] VITALS: BP 143/58; PULSE 66
[2023-06-06 10:14] VITALS: BP 112/57; PULSE 76
[2023-06-08 10:23] VITALS: BP 144/53; PULSE 61
[2023-06-13 10:18] VITALS: BP 120/52; PULSE 62
[2023-06-15 10:01] VITALS: BP 160/63; PULSE 63
[2023-06-15 10:54] VITALS: BP 118/55; PULSE 61
[2023-06-22 10:15] VITALS: BP 140/60; PULSE 62
== END 2023-06-26 23:59 | disposition home or self-care (01) ==
LOC: CR 09:58
PROVIDERS: PCP Nurse Practitioner; Visit Provider Internal Medicine Cardiovascular Disease
DX: R69 Illness, unspecified (principal)

== ENCOUNTER → 2023-06-28 09:48 | Outpatient (BNVA) | payer MEDICARE, SELFPAY | PROVIDERS: PCP Nurse Practitioner; Referring Provider Nurse Practitioner; Visit Provider Nurse Practitioner Gerontology | DX: N40.1 Benign prostatic hyperplasia with lower urinary tract symptoms (principal); R39.89 Other symptoms and signs involving the genitourinary system; I12.9 Hypertensive chronic kidney disease with stage 1 through stage 4 chronic kidney disease, or unspecified chronic kidney disease; N18.30 Chronic kidney disease, stage 3 unspecified; E11.22 Type 2 diabetes mellitus with diabetic chronic kidney disease; N20.0 Calculus of kidney | CPT/HCPCS: 99214 ==

== ENCOUNTER 2023-07-18 09:56 | Outpatient (RCR) | payer SELFPAY ==
[2023-06-27 00:11] VITALS: BP 140/60; PULSE 62
[2023-06-29 09:57] VITALS: BP 147/63; PULSE 54
[2023-07-04 10:06] VITALS: BP 132/57; PULSE 65
[2023-07-11 10:30] VITALS: BP 138/56; PULSE 63
[2023-07-18 09:54] VITALS: BP 158/59; PULSE 59
== END 2023-07-27 23:59 | disposition home or self-care (01) ==
LOC: CR 09:56
PROVIDERS: PCP Nurse Practitioner; Visit Provider Internal Medicine Cardiovascular Disease
DX: R69 Illness, unspecified (principal)

== ENCOUNTER 2023-08-08 02:48 | Outpatient (CLI) | payer MEDICARE, SELFPAY ==
[2023-08-08 10:21] LABS: Abs Immature Grans 0.02 10^3/uL (0.0-0.06); Absolute Basophil Count 0.06 10^3/uL (0.0-0.2); Absolute Eosinophil Count 0.23 10^3/uL (0.0-0.7); Absolute Lymphocyte Count 1.77 10^3/uL (1.2-3.4); Absolute Monocyte Count 0.56 10^3/uL (0.1-0.8); Absolute Neutrophil Count 3.74 10^3/uL (1.2-6.7); Basophils % 0.9; Eosinophils % 3.6; HCT 34.8 % (40.0-50.0); HGB 11.7 g/dL (13.5-17.5); Immature Grans % 0.3; Lymphocytes % 27.7; MCH 30.6 pg (27.0-33.0); MCHC 33.6 % (32.0-36.0); MCV 91 fL (80-95); Monocytes % 8.8; Neutrophils % 58.7; Platelet Count 104 10^3/uL (130-400); RBC 3.82 10^6/uL (4.36-5.78); RDW 13.1 % (11.8-14.1); RDW-SD 43.4 fL; WBC 6.38 10^3/uL (4.4-10.8)
[2023-08-08 10:48] LABS: ALT 39 U/L (16-63); AST 20 U/L (15-37); Albumin 3.6 g/dL (3.4-5.0); Alkaline Phosphatase 68 U/L (46-116); BUN 43 mg/dL (7-18); Bilirubin, Total 1.1 mg/dL (0.2-1.0); CREATININE 1.9 mg/dL (0.70-1.30); Calcium 9.1 mg/dL (8.5-10.1); Calculated LDL 47 mg/dL (<100); Chloride 109 mmol/L (98-107); Cholesterol 113 mg/dL (<200); Estimated GFR 35.22 (mL/min/1.73m2); Glucose 159 mg/dL (74-106); HDL Cholesterol 45 mg/dL (40-60); Potassium 4.3 mmol/L (3.5-5.1); Sodium 144 mmol/L (136-145); Total Protein 7.1 g/dL (6.4-8.2); Triglyceride 107 mg/dL (<150)
== END 2023-08-08 02:49 | disposition home or self-care (01) ==
LOC: LBO 02:48
PROVIDERS: PCP Nurse Practitioner; Visit Provider Nurse Practitioner
DX: E78.5 Hyperlipidemia, unspecified (principal); E11.21 Type 2 diabetes mellitus with diabetic nephropathy; N18.30 Chronic kidney disease, stage 3 unspecified; I25.10 Atherosclerotic heart disease of native coronary artery without angina pectoris
CPT/HCPCS: 36415; 80053; 80061; 85025

== ENCOUNTER 2023-08-24 09:53 | Outpatient (RCR) | payer SELFPAY ==
[2023-07-28 00:19] VITALS: BP 158/59; PULSE 59
[2023-08-01 11:15] VITALS: BP 142/56; PULSE 62
[2023-08-08 10:15] VITALS: BP 156/63; PULSE 64
[2023-08-10 10:08] VITALS: BP 124/52; PULSE 57
[2023-08-15 10:07] VITALS: BP 155/61; PULSE 68
[2023-08-15 11:07] VITALS: BP 141/53; PULSE 74
[2023-08-17 10:38] VITALS: BP 144/54; PULSE 62
== END 2023-08-26 23:59 | disposition home or self-care (01) ==
LOC: CR 09:53
PROVIDERS: PCP Nurse Practitioner; Visit Provider Internal Medicine Cardiovascular Disease
DX: R69 Illness, unspecified (principal)

== ENCOUNTER 2023-09-26 10:36 | Outpatient (RCR) | payer SELFPAY ==
[2023-08-27 00:06] VITALS: BP 144/54; PULSE 62
[2023-09-07 10:00] VITALS: BP 131/54; PULSE 67
[2023-09-12 10:04] VITALS: BP 131/48; PULSE 62
[2023-09-14 10:22] VITALS: BP 129/55; PULSE 62
[2023-09-26 10:45] VITALS: BP 158/62; PULSE 67
== END 2023-09-26 23:59 | disposition home or self-care (01) ==
LOC: CR 10:36
PROVIDERS: PCP Nurse Practitioner; Visit Provider Internal Medicine Cardiovascular Disease
DX: R69 Illness, unspecified (principal)

== ENCOUNTER 2023-10-24 10:08 | Outpatient (RCR) | payer SELFPAY ==
[2023-09-27 00:05] VITALS: BP 144/54; PULSE 62
[2023-09-28 10:34] VITALS: BP 150/58; PULSE 65
[2023-10-03 10:08] VITALS: BP 113/51; PULSE 58
[2023-10-24 10:01] VITALS: BP 117/51; PULSE 62
== END 2023-10-26 23:59 | disposition home or self-care (01) ==
LOC: CR 10:08
PROVIDERS: PCP Nurse Practitioner; Visit Provider Internal Medicine Cardiovascular Disease
DX: R69 Illness, unspecified (principal)

== ENCOUNTER 2023-11-23 10:41 | Outpatient (RCR) | payer SELFPAY ==
[2023-10-27 00:04] VITALS: BP 144/54; PULSE 62
[2023-10-31 10:00] VITALS: BP 157/57; PULSE 64
[2023-11-23 10:10] VITALS: BP 123/50; PULSE 64
== END 2023-11-26 23:59 | disposition home or self-care (01) ==
LOC: CR 10:41
PROVIDERS: PCP Nurse Practitioner; Visit Provider Internal Medicine Cardiovascular Disease
DX: R69 Illness, unspecified (principal)

== ENCOUNTER 2023-12-12 10:09 | Outpatient (RCR) | payer SELFPAY ==
[2023-11-27 00:16] VITALS: BP 144/54; PULSE 62
[2023-11-28 10:11] VITALS: BP 168/69; PULSE 81
[2023-11-30 10:02] VITALS: BP 153/58; PULSE 75
== END 2023-12-27 23:59 | disposition home or self-care (01) ==
LOC: CR 10:09
PROVIDERS: PCP Nurse Practitioner; Visit Provider Internal Medicine Interventional Cardiology
DX: R69 Illness, unspecified (principal)

== ENCOUNTER 2024-01-04 10:11 | Outpatient (RCR) | payer SELFPAY ==
[2023-12-28 00:07] VITALS: BP 144/54; PULSE 62
[2023-12-28 10:10] VITALS: BP 134/58; PULSE 63
[2024-01-02 10:12] VITALS: BP 153/62; PULSE 74
[2024-01-04 10:18] VITALS: BP 123/54; PULSE 58
== END 2024-01-25 23:59 | disposition home or self-care (01) ==
LOC: CR 10:11
PROVIDERS: PCP Nurse Practitioner; Visit Provider Internal Medicine Interventional Cardiology
DX: R69 Illness, unspecified (principal)

== ENCOUNTER → 2024-03-12 08:54 | Outpatient (BNVA) | payer MEDICARE, SELFPAY | PROVIDERS: PCP Nurse Practitioner; Referring Provider Nurse Practitioner; Visit Provider Nurse Practitioner Adult Health | DX: I95.9 Hypotension, unspecified (principal); G31.84 Mild cognitive impairment of uncertain or unknown etiology; G25.0 Essential tremor; E11.42 Type 2 diabetes mellitus with diabetic polyneuropathy | CPT/HCPCS: 99214 ==

== ENCOUNTER 2024-03-19 09:59 | Outpatient (RCR) | payer SELFPAY ==
[2024-02-27 11:02] VITALS: BP 133/57; PULSE 68
[2024-03-05 10:14] VITALS: BP 134/60; PULSE 63
[2024-03-12 10:08] VITALS: BP 135/56; PULSE 61
[2024-03-19 10:05] VITALS: BP 119/58; PULSE 78
== END 2024-03-26 23:59 | disposition home or self-care (01) ==
LOC: CR 09:59
PROVIDERS: PCP Nurse Practitioner; Visit Provider Internal Medicine Cardiovascular Disease
DX: R69 Illness, unspecified (principal)

== ENCOUNTER → 2024-03-26 13:48 | Outpatient (BNVA) | payer MEDICARE, SELFPAY | PROVIDERS: PCP Nurse Practitioner; Referring Provider Nurse Practitioner | DX: M25.522 Pain in left elbow (principal) | CPT/HCPCS: 99213 ==

== ENCOUNTER 2024-04-25 10:03 | Outpatient (RCR) | payer SELFPAY ==
[2024-03-27 00:13] VITALS: BP 119/58; PULSE 78
[2024-04-02 11:28] VITALS: BP 141/59; PULSE 60
[2024-04-09 10:21] VITALS: BP 113/56; PULSE 56
[2024-04-16 10:21] VITALS: BP 126/76; PULSE 63
[2024-04-23 10:09] VITALS: BP 143/79; PULSE 67
== END 2024-04-26 23:59 | disposition home or self-care (01) ==
LOC: CR 10:03
PROVIDERS: PCP Nurse Practitioner; Visit Provider Internal Medicine Cardiovascular Disease
DX: R69 Illness, unspecified (principal)

== ENCOUNTER 2024-05-23 10:17 | Outpatient (RCR) | payer SELFPAY ==
[2024-04-27 00:07] VITALS: BP 119/58; PULSE 78
[2024-05-07 11:54] VITALS: BP 115/53; PULSE 56
[2024-05-09 12:29] VITALS: BP 140/58; PULSE 61
[2024-05-16 10:26] VITALS: BP 140/60; PULSE 63
[2024-05-21 10:24] VITALS: BP 125/56; PULSE 57
[2024-05-23 10:11] VITALS: BP 163/61; PULSE 64
== END 2024-05-26 23:59 | disposition home or self-care (01) ==
LOC: CR 10:17
PROVIDERS: PCP Nurse Practitioner; Visit Provider Internal Medicine Cardiovascular Disease
DX: R69 Illness, unspecified (principal)

== ENCOUNTER 2024-05-27 03:51 | Outpatient (CLI) | payer MEDICARE, SELFPAY ==
[2024-05-27 08:12] LABS: Abs Immature Grans 0.01 10^3/uL (0.0-0.06); Absolute Basophil Count 0.07 10^3/uL (0.0-0.2); Absolute Eosinophil Count 0.29 10^3/uL (0.0-0.7); Absolute Lymphocyte Count 2.21 10^3/uL (1.2-3.4); Absolute Monocyte Count 0.66 10^3/uL (0.1-0.8); Absolute Neutrophil Count 3.08 10^3/uL (1.2-6.7); Basophils % 1.1 %; Eosinophils % 4.6 %; HCT 36.8 % (40.0-50.0); HGB 12.1 g/dL (13.5-17.5); Immature Grans % 0.2 %; MCH 30.6 pg (27.0-33.0); MCHC 32.9 % (32.0-36.0); MCV 93 fL (80-95); Monocytes % 10.4 %; Neutrophils % 48.7 %; Platelet Count 116 10^3/uL (130-400); RBC 3.95 10^6/uL (4.36-5.78); RDW 13.6 % (11.8-14.1); RDW-SD 46.4 fL; WBC 6.32 10^3/uL (4.4-10.8)
[2024-05-27 08:25] LABS: ALT 40 U/L (16-63); AST 23 U/L (15-37); Albumin 3.7 g/dL (3.4-5.0); Alkaline Phosphatase 71 U/L (46-116); Anion Gap 10.3 mmol/L (3-11); BUN 50 mg/dL (7-18); CO2 27.7 mmol/L (21.0-32.0); CREATININE 2.1 mg/dL (0.70-1.30); Chloride 107 mmol/L (98-107); Estimated GFR 31.04 (mL/min/1.73m2); Glucose 94 mg/dL (74-106); Sodium 145 mmol/L (136-145)
== END 2024-05-27 03:52 | disposition home or self-care (01) ==
LOC: LBO 03:51
PROVIDERS: PCP Nurse Practitioner; Referring Provider Nurse Practitioner; Visit Provider Nurse Practitioner
DX: D64.9 Anemia, unspecified; N18.30 Chronic kidney disease, stage 3 unspecified
CPT/HCPCS: 36415; 80053; 85025

== ENCOUNTER 2024-06-20 10:00 | Outpatient (RCR) | payer SELFPAY ==
[2024-05-28 10:31] VITALS: BP 129/52; PULSE 54
[2024-06-04 09:56] VITALS: BP 154/67; PULSE 64
[2024-06-20 10:00] VITALS: BP 117/56; PULSE 55
== END 2024-06-26 23:59 | disposition home or self-care (01) ==
LOC: CR 10:00
PROVIDERS: PCP Nurse Practitioner; Visit Provider Internal Medicine Cardiovascular Disease
DX: R69 Illness, unspecified (principal)

== ENCOUNTER → 2024-07-11 09:45 | Outpatient (BNVA) | payer MEDICARE, SELFPAY | PROVIDERS: PCP Nurse Practitioner; Visit Provider Nurse Practitioner Gerontology | DX: N40.1 Benign prostatic hyperplasia with lower urinary tract symptoms (principal); N13.8 Other obstructive and reflux uropathy; N20.0 Calculus of kidney | CPT/HCPCS: 99213 ==

== ENCOUNTER 2024-07-23 10:13 | Outpatient (RCR) | payer SELFPAY ==
[2024-06-27 00:17] VITALS: BP 117/56; PULSE 55
[2024-06-27 09:55] VITALS: BP 143/57; PULSE 60
[2024-07-02 13:55] VITALS: BP 145/60; PULSE 60
[2024-07-11 10:23] VITALS: BP 143/60; PULSE 53
[2024-07-23 10:14] VITALS: BP 127/66; PULSE 75
== END 2024-07-27 23:59 | disposition home or self-care (01) ==
LOC: CR 10:13
PROVIDERS: PCP Nurse Practitioner; Visit Provider Internal Medicine Cardiovascular Disease
DX: R69 Illness, unspecified (principal)

== ENCOUNTER 2024-07-25 08:30 | Emergency (ER) | payer MEDICARE, SELFPAY ==
[2024-07-25] VITALS (62 sets, daily range): BP systolic 77–132; BP diastolic 46–73; PULSE 72–97; RESP 15–30; TEMP 36.3; O2SAT 85–99
--- NOTE | 2024-07-25 08:45 | RT.EKG_ITS ---
APPROVED REPORT Exam: Resting ECG Reason for Exam: Nausea, Vomiting Patient Location: E HR:68 bpm ECG Measurements Heart Rate 68 AXIS [place] [id number] P [id number] QRSd 123 QRS 122 QT 436 T 194 QTc 464 Conclusion Atrial fibrillation...? atrial activity Ventricular premature complex...V complex w/ short R-R interval Nonspecific intraventricular conduction delay...QRSd >115mS, not LBBB/RBBB Repol abnrm suggests ischemia, diffuse leads...ST-T neg, ant/lat/inf
[2024-07-25 09:20] LABS: Abs Immature Grans 0.05 10^3/uL (0.0-0.06); Absolute Basophil Count 0.04 10^3/uL (0.0-0.2); Absolute Eosinophil Count 0.58 10^3/uL (0.0-0.7); Absolute Monocyte Count 0.62 10^3/uL (0.1-0.8); Basophils % 0.3 %; Eosinophils % 4.2 %; HCT 39.2 % (40.0-50.0); HGB 12.4 g/dL (13.5-17.5); Immature Grans % 0.4 %; MCH 30.4 pg (27.0-33.0); MCHC 31.6 % (32.0-36.0); MCV 96 fL (80-95); Monocytes % 4.5 %; Neutrophils % 83.6 %; Platelet Count 120 10^3/uL (130-400); RBC 4.08 10^6/uL (4.36-5.78); RDW 13.7 % (11.8-14.1); RDW-SD 48.1 fL; WBC 13.76 10^3/uL (4.4-10.8)
[2024-07-25 09:23] LABS: Absolute Lymphocyte Count 0.96 10^3/uL (1.2-3.4)
[2024-07-25 09:33] LABS: PTT Activated 23.3 sec (23.6-32.8)
[2024-07-25 09:42] LABS: ALT 60 U/L (16-63); AST 56 U/L (15-37); Albumin 3.4 g/dL (3.4-5.0); Alkaline Phosphatase 92 U/L (46-116); Anion Gap 17.2 mmol/L (3-11); BUN 53 mg/dL (7-18); CO2 18.8 mmol/L (21.0-32.0); CREATININE 2.8 mg/dL (0.70-1.30); Calcium 9.5 mg/dL (8.5-10.1); Chloride 102 mmol/L (98-107); Estimated GFR 21.98 (mL/min/1.73m2); Glucose 439 mg/dL (74-106); Magnesium 1.9 mg/dL (1.8-2.4); Potassium 4.3 mmol/L (3.5-5.1); Sodium 138 mmol/L (136-145); Total Protein 7.3 g/dL (6.4-8.2)
[2024-07-25 09:43] LABS: Troponin I 3785 ng/L (< or =60)
--- NOTE | 2024-07-25 09:45 | DI.RAD_ITS ---
Exam(s) XR PORTABLE CHEST AP EXAM: XR PORTABLE CHEST AP CLINICAL HISTORY: chest pain, SOB TECHNIQUE: 2D digital imaging was performed. COMPARISON: US POCUS EXAM from 07/25/2024 FINDINGS: LUNGS: Vascular prominence. Bilateral perihilar infiltrates suspicious for pulmonary edema. No pleu ral abnormality seen. HEART: Within normal limits for projection. Status post CABG AORTA: Normal diameter. BONES: Sternal wires. Soft tissues: Unremarkable. IMPRESSION: Findings suspicious for CHF. DATA REPOSITORY: RADIATION DOSE DELIVERED:
--- NOTE | 2024-07-25 09:45 | W.ED.GENAD ---
Discharge Plan Disposition Patient Disposition: Transfer-Acute Inpatient Care Specific Acute Inpt Facility: [facility] Condition: Critical Discharge Details Clinical Impression: Acute non-ST elevation myocardial infarction (NSTEMI), Acute CHF, AMBER (acute kidney injury) Primary Care Provider: Martha Torres ED Provider: Lamonte Galeano Home Meds and New Rx's Prescriptions: No Action insulin glargine [Lantus Solostar U-100 Insulin] 100 unit/mL (3 mL) insulin pen See Rx Instructions .ROUTE .COMPLEX Qty: 45 3RF Dose Instruction: INJECT 60 UNITS UNDER THE SKIN AT BEDTIME; DECREASE TO 50 UNITS AT BEDTIME THE NIGHT BEFORE EXERCISE Rx Instructions: INJECT 60 UNITS UNDER THE SKIN AT BEDTIME; DECREASE TO 50 UNITS AT BEDTIME THE NIGHT BEFORE EXERCISE nitroglycerin 0.4 mg tablet, sublingual See Rx Instructions .ROUTE .COMPLEX Qty: 25 12RF Dose Instruction: TAKE 1 TABLET UNDER TONGUE IF NEEDED FOR CHEST PAIN Rx Instructions: TAKE 1 TABLET UNDER TONGUE IF NEEDED FOR CHEST PAIN cyanocobalamin (vitamin B-12) 1,000 mcg tablet 1,000 mcg PO DAILY cholecalciferol (vitamin D3) 50 mcg (2,000 unit) capsule 50 mcg PO DAILY diphenhydramine-acetaminophen [Tylenol PM Extra Strength] 25-500 mg tablet 0.5 tab PO QHS PRN clopidogrel [Plavix] 75 mg tablet 75 mg PO DAILY (DME) blood glucose control, normal [OneTouch Ultra Control] 1 EACH solution 1 ea Miscellaneous TID aspirin [Aspirin Low-Strength] 81 MG tablet,chewable 81 mg PO DAILY Qty: 1 Patient Comments: 11/04/17 5 days of holding asa. DCW (DME) blood-glucose meter [OneTouch Ultra2 Meter] 1 EACH kit 1 ea Miscellaneous TID Qty: 1 0RF Rx Instructions: Dx E11.22 to test BS TID to keep A1C below 7.5% (DME) OneTouch Ultra Test Strip See Rx Instructions .ROUTE .COMPLEX Qty: 200 3RF Dose Instruction: TEST THREE TIMES A DAY Rx Instructions: TEST THREE TIMES A DAY e11.9 bumetanide 0.5 mg tablet See Rx Instructions .ROUTE .COMPLEX Qty: 90 3RF Dose Instruction: TAKE 1 TABLET BY MOUTH EVERY MORNING Rx Instructions: TAKE 1 TABLET BY MOUTH EVERY MORNING glimepiride 4 mg tablet See Rx Instructions .ROUTE .COMPLEX Qty: 90 3RF Dose Instruction: TAKE ONE-HALF TABLET BY MOUTH EVERY DAY WITH BREAKFAST Rx Instructions: TAKE ONE-HALF TABLET BY MOUTH EVERY DAY WITH BREAKFAST (DME) pen needle, diabetic [BD Jia 2nd Gen Pen Needle] 32 gauge x 5/32 needle See Rx Instructions .ROUTE .COMPLEX Qty: 100 3RF Dose Instruction: USE ONCE DAILY TO ADMINISTER LANTUS Rx Instructions: USE ONCE DAILY TO ADMINISTER LANTUS pregabalin 100 mg capsule 100 mg PO BID Qty: 180 3RF (DME) lancets 33 gauge misc See Rx Instructions .Route Qty: 100 3RF Rx Instructions: one touch lancets. Test three times a day. DX: E11.21 tamsulosin [Flomax] 0.4 mg capsule 0.4 mg PO DAILY Qty: 90 3RF atorvastatin 80 mg tablet See Rx Instructions .ROUTE .COMPLEX Qty: 90 3RF Dose Instruction: TAKE ONE TABLET BY MOUTH AT BEDTIME Rx Instructions: TAKE ONE TABLET BY MOUTH AT BEDTIME lisinopril 5 mg tablet 5 mg PO DAILY Patient Comments: TAKE ONE TABLET BY MOUTH EVERY DAY isosorbide mononitrate 30 mg tablet extended release 24 hr 30 mg PO DAILY Patient Comments: TAKE ONE TABLET BY MOUTH EVERY DAY metoprolol succinate 25 mg tablet extended release 24 hr 25 mg PO DAILY Patient Comments: TAKE ONE TABLET BY MOUTH EVERY DAY Discharge Data Discharge Date/Time-TO BE ENTERED AT DEPARTURE: 07/25/24 12:47 HPI General Mode of arrival: ambulatory. Date/Time Provider Initiated Documentation: 07/25/24 08:55. Limitations to Documentation: no limitations. Information obtained by: patient. HPI Narrative: 79-year-old male with history of chronic kidney disease, coronary artery disease status post CABG, hypertension, diabetes, mild cognitive impairment, here with chest pain, shortness of breath and diaphoresis that started last night. Patient has no chest pain at this time. He is feeling better on supplemental oxygen. Patient had abnormal cardiac stress test recently at [facility] and is scheduled for follow-up cardiac catheterization on 08/12. Related Data Home Medications ?Medication ?Instructions ?Recorded ?Confirmed blood glucose control, normal 02/15/13 07/25/24 (OneTouch Ultra Control solution) aspirin 81 mg chewable tablet 81 mg PO DAILY #1 tab-cap 10/02/15 07/25/24 (Aspirin Low-Strength) blood-glucose meter (OneTouch ##1 06/19/18 07/25/24 Ultra2 Meter kit) cholecalciferol (vitamin D3) 50 50 mcg PO DAILY 01/05/22 07/25/24 mcg (2,000 unit) capsule cyanocobalamin (vitamin B-12) 1,000 mcg PO DAILY 01/05/22 07/25/24 1,000 mcg tablet diphenhydramine 25 0.5 tab PO QHS PRN 06/09/22 07/25/24 mg-acetaminophen 500 mg tablet (Tylenol PM Extra Strength) blood sugar diagnostic (OneTouch #200 strips 11/07/23 07/25/24 Ultra Test strips) bumetanide 0.5 mg tablet See Rx Instructions .Route 01/03/24 07/25/24 .COMPLEX #90 tabs insulin glargine 100 unit/mL (3 See Rx Instructions .Route 03/04/24 07/25/24 mL) subcutaneous pen (Lantus .COMPLEX #45 mL Solostar U-100 Insulin) nitroglycerin 0.4 mg sublingual See Rx Instructions .Route 03/04/24 07/25/24 tablet .COMPLEX #25 tabs glimepiride 4 mg tablet See Rx Instructions .Route 04/01/24 07/25/24 .COMPLEX #90 tabs pen needle, diabetic 32 gauge x #100 ea 05/20/24 07/25/24/32 (BD Jia 2nd Gen Pen Needle) pregabalin 100 mg capsule 100 mg PO BID #180 caps 05/21/24 07/25/24 lancets 33 gauge #100 ea 06/11/24 07/25/24 atorvastatin 80 mg tablet See Rx Instructions .Route 06/24/24 07/25/24 .COMPLEX #90 tabs tamsulosin 0.4 mg capsule (Flomax) 0.4 mg PO DAILY #90 caps 06/24/24 07/25/24 clopidogrel 75 mg tablet (Plavix) 75 mg PO DAILY 07/11/24 07/25/24 isosorbide mononitrate 30 mg 30 mg PO DAILY 07/25/24 07/25/24 tablet,extended release 24 hr lisinopril 5 mg tablet 5 mg PO DAILY 07/25/24 07/25/24 metoprolol succinate 25 mg 25 mg PO DAILY 07/25/24 07/25/24 tablet,extended release 24 hr Previous Rx's ?Medication ?Instructions ?Recorded blood-glucose meter (OneTouch ##1 06/19/18 Ultra2 Meter kit) blood sugar diagnostic (OneTouch #200 strips 11/07/23 Ultra Test strips) bumetanide 0.5 mg tablet See Rx Instructions .Route 01/03/24 .COMPLEX #90 tabs insulin glargine 100 unit/mL (3 See Rx Instructions .Route 03/04/24 mL) subcutaneous pen (Lantus .COMPLEX #45 mL Solostar U-100 Insulin) nitroglycerin 0.4 mg sublingual See Rx Instructions .Route 03/04/24 tablet .COMPLEX #25 tabs glimepiride 4 mg tablet See Rx Instructions .Route 04/01/24 .COMPLEX #90 tabs pen needle, diabetic 32 gauge x #100 ea 05/20/24 (BD Jia 2nd Gen Pen Needle) pregabalin 100 mg capsule 100 mg PO BID #180 caps 05/21/24 lancets 33 gauge #100 ea 06/11/24 atorvastatin 80 mg tablet See Rx Instructions .Route 06/24/24 .COMPLEX #90 tabs tamsulosin 0.4 mg capsule (Flomax) 0.4 mg PO DAILY #90 caps 06/24/24 Allergies Allergy/AdvReac Type Severity Reaction Status Date / Time No Known Allergies Allergy Verified 07/11/24 09:56 General Stated Complaint: Chest Pain GABRIEL: 3 Review of Systems All systems reviewed & are unremarkable except as noted in HPI and below Constitutional Constitutional: Denies fever(s) Cardiovascular Cardiovascular: Reports as per HPI Exam Const General: cooperative and no acute distress HENMI Mouth: moist mucous membranes Eyes Conjunctivae: normal conjunctivae Sclera: normal sclerae Neck Neck: trachea midline and supple Resp Auscultation: clear to auscultation bilaterally, no rales, no rhonchi and no wheezes Cardio Rate: regular rate and not tachycardic Rhythm: regular rhythm GI Palpation: soft, not firm, no guarding, no masses, not rigid and nontender Skin General skin exam: no rashes or lesions noted Neuro General: patient alert, patient awake, patient oriented x3 and tone normal Extrem General: no calf tenderness and edema (trace pitting up shins) Laterality: bilateral Psych Appearance: grossly normal Mental Status: mental status grossly normal Course Vital Signs Vital signs: Vital Signs Temperature 36.3 C L 07/25/24 08:48 Pulse 92 H 07/25/24 08:48 Respiratory Rate 16 07/25/24 08:48 Blood Pressure 96/65 L 07/25/24 08:48 Pulse Oximetry 93 07/25/24 08:48 Temperature 36.3 C L 07/25/24 08:48 Temperature Source Temporal Artery Scan 07/25/24 08:48 Pulse 87 07/25/24 09:15 Pulse 87 07/25/24 09:15 Respiratory Rate 19 07/25/24 09:15 Respiratory Effort Normal, Short of Breath 07/25/24 09:15 Respiratory Depth Normal 07/25/24 09:15 Respiratory Pattern Normal 07/25/24 09:15 Blood Pressure 109/68 07/25/24 09:15 Blood Pressure Mean 80 07/25/24 09:15 Blood Pressure Position Sitting 07/25/24 08:48 Pulse Oximetry 90 L 07/25/24 09:15 Oxygen Delivery Method Room Air 07/25/24 08:48 Oxygen Flow Rate 0 07/25/24 08:48 Pain Level 8 07/25/24 08:48 Comment 2L 07/25/24 09:15 Lab/Test Results Lab/Test Results: Laboratory Tests Range/Units 07/25/24 09:10 WBC (4.4-10.8) 10^3/uL 13.76 H RBC (4.36-5.78) 10^6/uL 4.08 L Hgb (13.5-17.5) g/dL 12.4 L Hct (40.0-50.0) % 39.2 L MCV (80-95) fL 96 H MCH (27.0-33.0) pg 30.4 MCHC (32.0-36.0) % 31.6 L RDW (11.8-14.1) % 13.7 Plt Count (130-400) 10^3/uL 120 L MPV (8.0-11.0) fL Immature Gran % % 0.4 Neutrophils % % 83.6 Lymphocytes % % 7.0 Monocytes % % 4.5 Eosinophils % % 4.2 Basophils % % 0.3 Nucleated RBC % (0.0-0.3) % 0.0 Absolute Neutrophils (1.2-6.7) 10^3/uL 11.50 H Absolute Lymphocytes (1.2-3.4) 10^3/uL 0.96 L Absolute Monocytes (0.1-0.8) 10^3/uL 0.62 Absolute Eosinophils (0.0-0.7) 10^3/uL 0.58 Absolute Basophils (0.0-0.2) 10^3/uL 0.04 APTT (23.6-32.8) sec 23.3 L Sodium (136-145) mmol/L 138 Potassium (3.5-5.1) mmol/L 4.3 Chloride (98-107) mmol/L 102 Carbon Dioxide (21.0-32.0) mmol/L 18.8 L Anion Gap (3-11) mmol/L 17.2 H BUN (7-18) mg/dL 53 H Creatinine (0.70-1.30) mg/dL 2.8 H Est GFR (CKD-EPI 2020) (mL/min/1.73m2) 21.98 Glucose (74-106) mg/dL 439 H Calcium (8.5-10.1) mg/dL 9.5 Magnesium (1.8-2.4) mg/dL 1.9 Total Bilirubin (0.2-1.0) mg/dL 1.20 H AST (15-37) U/L 56 H ALT (16-63) U/L 60 Alkaline Phosphatase (46-116) U/L 92 Troponin I (< or =60) ng/L 3785 H* Total Protein (6.4-8.2) g/dL 7.3 Albumin (3.4-5.0) g/dL 3.4 Medical Decision Making 1007 -- 79yo male with multiple medical problems including history of coronary artery disease status post CABG, recent positive stress test with plan for cardiac catheterization on 08/12 at [facility], here with dyspnea, chest pain and diaphoresis that started last night. Chest pain is intermittent. Patient is hypotensive and hypoxic on arrival. He does not typically use oxygen. Supplemental oxygen applied by nasal cannula and oxygen saturation improved. Patient does have trace pitting edema bilateral lower extremities up to his shins. I am concerned about acute coronary syndrome and acute CHF. Consider pulmonary embolism. EKG was reviewed and interpreted by me: This report, A-fib 68 bpm, PVCs noted, subtle ST depression noted laterally. No STEMI. Labs reviewed and troponin is significantly elevated at 3785. Unfortunately there is acute on chronic kidney injury with GFR of 22. Will not be able to obtain CT of the chest. Plan to initiate treatment with heparin bolus and infusion. Aspirin. I will start low-dose nitroglycerin as necessary for chest pain. I called [facility] transfer center and requested transfer. Awaiting callback from cardiology team. EKG sent. Confirmed full code. 1010 --notified by nursing that patient is now diaphoretic and having chest discomfort. I will repeat EKG. Plan to start nitroglycerin infusion. --Repeat EKG shows more pronounced ST depressions laterally, concern for dynamic changes, from prior. 1045 -- I spoke with [facility] cardiology [employer], discussed ED presentation and course and my request for transfer, she will be reviewing case with EP and calling back. 1105 -- Spoke with [employer] , Dr. Blank will accept patient in transfer. Plan for air - [facility] available and responding. -- Troponin trending up. Patient seems to be worsening on nitroglycerin. I will discontinue this. -- Care transitioned to [facility] team. Lab Data Lab results reviewed: Yes I reviewed the patient's lab results. Labs: Laboratory Tests Range/Units 07/25/24 07/25/24 09:10 11:28 WBC (4.4-10.8) 10^3/uL 13.76 H RBC (4.36-5.78) 10^6/uL 4.08 L Hgb (13.5-17.5) g/dL 12.4 L Hct (40.0-50.0) % 39.2 L MCV (80-95) fL 96 H MCH (27.0-33.0) pg 30.4 MCHC (32.0-36.0) % 31.6 L RDW (11.8-14.1) % 13.7 Plt Count (130-400) 10^3/uL 120 L MPV (8.0-11.0) fL Immature Gran % % 0.4 Neutrophils % % 83.6 Lymphocytes % % 7.0 Monocytes % % 4.5 Eosinophils % % 4.2 Basophils % % 0.3 Nucleated RBC % (0.0-0.3) % 0.0 Absolute Neutrophils (1.2-6.7) 10^3/uL 11.50 H Absolute Lymphocytes (1.2-3.4) 10^3/uL 0.96 L Absolute Monocytes (0.1-0.8) 10^3/uL 0.62 Absolute Eosinophils (0.0-0.7) 10^3/uL 0.58 Absolute Basophils (0.0-0.2) 10^3/uL 0.04 APTT (23.6-32.8) sec 23.3 L Sodium (136-145) mmol/L 138 Potassium (3.5-5.1) mmol/L 4.3 Chloride (98-107) mmol/L 102 Carbon Dioxide (21.0-32.0) mmol/L 18.8 L Anion Gap (3-11) mmol/L 17.2 H BUN (7-18) mg/dL 53 H Creatinine (0.70-1.30) mg/dL 2.8 H Est GFR (CKD-EPI 2020) (mL/min/1.73m2) 21.98 Glucose (74-106) mg/dL 439 H Calcium (8.5-10.1) mg/dL 9.5 Magnesium (1.8-2.4) mg/dL 1.9 Total Bilirubin (0.2-1.0) mg/dL 1.20 H AST (15-37) U/L 56 H ALT (16-63) U/L 60 Alkaline Phosphatase (46-116) U/L 92 Troponin I (< or =60) ng/L 3785 H* 8344 H* NT-Pro-B Natriuret Pep (<300) pg/mL 6762 H Total Protein (6.4-8.2) g/dL 7.3 Albumin (3.4-5.0) g/dL 3.4 ABO/Rh A Positive Antibody Screen NEGATIVE Quality:SDOH Health Related Social Needs: No Data to Display Critical Care Time Critical Care Time Critical Care Time: Yes Total Critical Care Time: 85 Attestation: I spent greater than 85 minutes addressing this patient's immediate life threats. Please see MDM section of note. This time was spent engaged in work directly related to the patient's care, exclusive of separate procedures, and failure to initiate these interventions would have likely resulted in clinically significant or life threatening deterioration in the patient's condition. PFSH All Active Problems (Updated 07/25/24 @ 11:07 by Lamonte Galaeno MD) AMBER (acute kidney injury) (Acute) Acute CHF (Acute) Acute non-ST elevation myocardial infarction (NSTEMI) (Acute) Onycholysis (Acute) Onychomycosis (Acute) Elbow pain, left (Acute) Peripheral artery disease (Acute) HTN (hypertension) (Acute) Chronic kidney disease, stage III (moderate) (Acute 02/10/12) Cor athrscl-uns vessel (Acute 02/10/12) CABG 5v EF 60% 02/24/2004; stent to LAD 06/2003 Dr Silver [facility] 09/22/15 PCI JIM to ostial RCA, Dr Akhtar [facility] Erectile dysfunction (Acute 02/10/12) Gout (Acute 02/10/12) Other and unspecified hyperlipidemia (Acute 03/13/13) LDL baseline 169 Diabetic neuropathy (Chronic) Urinary frequency (Acute) Mr. Wilkins complains of urinary frequency, especially at night, and also urinary hesitancy. Urinary hesitancy (Acute) Diabetes mellitus with kidney disease (Chronic) 12/03/19: hx r third toe ulcer-followed by vascular at [facility].RTC 4-6months.appears healed. Vincent Blancas MD [facility] vascular Peripheral vascular angioplasty status with implants and grafts (Acute) 08/20/20 left popliteal artery balloon and stenting [facility] 09/14/21 Critical lower limb ischemia [facility] Essential tremor (Acute) Hypotension (Acute) Cognitive changes (Acute) Sleep difficulties (Acute) 03/07/[address] Romel [facility]; will have f/u with Felipe Cody NP Abnormal blood chemistry (Acute) Forehead laceration (Acute) Visit for suture removal (Acute) Dyspnea on exertion (Acute 12/07/21) Hyperlipidemia (Acute) Critical limb ischemia with history of revascularization of same extremity (Acute) BPH w urinary obs/LUTS (Acute) Secondary hyperparathyroidism (Acute) Mild cognitive impairment (Acute) Olecranon bursitis, right elbow (Acute) Popliteal artery stenosis (Acute ~08/2022) 09/06/22 Vascular Calculus of kidney (Chronic) Bradycardia (Acute ~10/2022) Multiple open wounds of foot (Acute) 12/08/22 Vascular, L plantar foot, L 2nd/4th toes Open wound of plantar aspect of left foot (Acute) 02/07/23 Vascular - Wounds healing Ulcer of toe of left foot (Acute) 02/07/23 Vascular wounds healing 02/10/23 [facility] 04/07/23 [facility] Critical lower limb ischemia (Acute) Arterial occlusive disease (Acute) 03/03/23 bilateral L.E. Positive self-administered antigen test for COVID-19 (Acute) sx onset 03/06/23 Medical History Diabetic ulcer of toe of right foot associated with diabetes mellitus due to underlying condition, limited to breakdown of skin (~05/2024) 06/19/24 [facility] Ischemia of left lower extremity 11/15/22 Left common femoral artery to TP trunk bypass graft with ipsilateral reverse GSVm([facility]) S/P angiogram of extremity (~10/2022) LLE Critical ischemia of extremity with history of revascularization of same extremity (~10/2022) LLE Hearing loss Peripheral vascular disease Surgical History S/P angioplasty LLL popliteal angioplasty and stenting 08/21/20 [facility] Hx of cataract surgery 2012 Vascular Closure Device Deployment (09/22/15) Teodoro Akhtar Selective Subclavian Angiography (09/22/15) Teodoro Akhtar Left heart catheterization (09/22/15) Teodoro Akhtar Coronary Stent (09/22/15) Patsy Hicks 2002 Coronary Angiography (09/22/15) Teodoro Akhtar; 2002 Colonoscopy - MAC (11/08/17) Cholecystectomy ~1999 Coronary Artery Bypass Gaft (CABG) 2003 Dr Escalera; 5 vessel Bypass Graft Study (09/22/15) Teodoro Akhtar Access Site Angiography (09/22/15) Teodoro Akhtar Family History Other Diabetes Social History Smoking/Tobacco Use Status: Never Smoking risk assessment performed?: Yes Alcohol Intake: current Alcohol Intake frequency: a few times a month Counseling given: No Drug use: Never Substance use type: does not use Adopted: No Caregiver/Support person: No Foster care: No Household members: spouse Housing: house Number of Children: 2 number of grandchildren: 1 Communication Needs: [employer] current occupation: retired What is your relationship status?: Panel score (0-1 are the most socially isolated patients): 1 What type of physical activity do you participate in: walking Duration: 15-30 minutes/day Frequency: 1-2 times per week Seatbelt use: always Drive intox or ride w/intox trailer tank truck driver: No Working smoke detector in home: Yes Fire extinguisher in home: Yes Carbon monox detector in home: Yes Firearms in home: Yes (unloaded ) Firearms unloaded and locked: No Do you feel safe at home: Yes Do you feel safe in your relationship?: Yes Victim of physical abuse: No Victim of emotional abuse: No POCUS Exam (ED) Limited Cardiac Exam DATE OF EXAM: 07/25/24 TIME OF EXAM: 10:00 PROVIDER THAT PERFORMED THE STUDY: Lamonte Galeano IS THIS A REPEAT EXAM DURING THIS ENCOUNTER: no REASON FOR EXAM: Chest pain and Hypoxia VISUALIZED STRUCTURES: Left ventricle, Right ventricle and Interventricular septum VIEW OBTAINED: Parasternal long-axis PERTINENT FINDINGS/IMPRESSION: LV dysfunction; No pericardial effusion and No RV dilation Exam complete
[2024-07-25] MEDS: Aspirin 325 MG TAB PO (09:58)
[2024-07-25] MEDS: Heparin in 0.45% NaCl 25,000 UNIT/250 ML BAG 10 UNIT IV (09:58)
--- NOTE | 2024-07-25 10:00 | RT.EKG_ITS ---
APPROVED REPORT Exam: Resting ECG Reason for Exam: CHest Pain Patient Location: E HR:86 bpm ECG Measurements Heart Rate 86 AXIS [place] 180 P 31 QRSd 116 QRS 52 QT 386 T 137 QTc 461 Conclusion Sinus rhythm...normal P axis, V-rate 60- 99 Nonspecific intraventricular conduction delay...QRSd >115mS, not LBBB/RBBB Repol abnrm suggests ischemia, lateral leads...ST dep, T neg, I aVL V5 V6
[2024-07-25] MEDS: nitroGLYcerin in D5W 50 MG/250 ML BTL IV (10:17)
--- NOTE | 2024-07-25 10:30 | RT.EKG_ITS ---
APPROVED REPORT Exam: Resting ECG Reason for Exam: Chest Pain Patient Location: E HR:91 bpm ECG Measurements Heart Rate 91 AXIS [place] 188 P 37 QRSd 122 QRS 50 QT 373 T 137 QTc 461 Conclusion Sinus rhythm...normal P axis, V-rate 60- 99 Multiple ventricular premature complexes...V complexes w/ short R-R intervls Nonspecific intraventricular conduction delay...QRSd >115mS, not LBBB/RBBB Repol abnrm suggests ischemia, lateral leads...ST dep, T neg, I aVL V5 V6
--- NOTE | 2024-07-25 10:45 | RT.EKG_ITS ---
APPROVED REPORT Exam: Resting ECG Reason for Exam: chest pain Patient Location: E HR:87 bpm ECG Measurements Heart Rate 87 AXIS [place] 183 P 22 QRSd 124 QRS 66 QT 382 T 134 QTc 462 Conclusion Sinus rhythm...normal P axis, V-rate 60- 99 Nonspecific intraventricular conduction delay...QRSd >115mS, not LBBB/RBBB Repol abnrm suggests ischemia, lateral leads...ST dep, T neg, I aVL V5 V6
[2024-07-25 11:05] LABS: NT-proBNP 6762 pg/mL (<300)
[2024-07-25] MEDS: Clopidogrel 75 MG TAB PO (11:14)
[2024-07-25] MEDS: Lactated Ringers 250 ML IV (11:35)
[2024-07-25 11:55] LABS: Troponin I 8344 ng/L (< or =60)
== END 2024-07-25 12:47 | disposition short-term general hospital (02) ==
PROVIDERS: Emergency Provider Student in an Organized Health Care Education/Training Program; PCP Nurse Practitioner
DX: I21.4 Non-ST elevation (NSTEMI) myocardial infarction (principal); I50.9 Heart failure, unspecified; N17.9 Acute kidney failure, unspecified
CPT/HCPCS: 36415; 80053; 86850; 86900; 86901; 93005; 93308; 96365; 96375; 99291; 71045; 83735; 83880; 84484; 85025; 85730; 93010; J1644; J2305